=== PATIENT | female | born 1975 | race Two or more races ===

== ENCOUNTER 2024-07-18 09:45 | Outpatient (AMB) | payer MEDICAID, SELFPAY ==
--- NOTE | 2024-07-18 09:47 | MHC.OFFVIS ---
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 The patient reports that a year ago she had surgery at [facility] for her sciatica. After that surgery she says her pain is still severe. She reports it is worse on the left side than the right. Her neck, shoulder and arms have a lot of pain as well. It is distrupting her sleep. She denies any injury. Meloxicam and tramadol is her pain regimen. Allergies No Known Allergies Allergy (Verified 07/18/24 09:51) Medication List - Last Reconciled 07/18/24 by Magalie Yousif RN hydrochlorothiazide 50 mg PO DAILY losartan 100 mg PO DAILY meloxicam 15 mg PO BID tramadol 50 mg PO Q8H PRN HPI Comments Details: Neck pain, chronic, years. Goes to [facility] for back pain. Has not had any intervention for neck pain. No MRI. No PT yet. Posterior neck going to both shoulder and hands. She complains of clicking on right thumb. Can't sleep at night to find comfortable position. Describes it as tight. Numbness on both hands, right worse than left. No hand or cervical spinal xray. Was told in past to have CTS year sago. Had injection on right wrist in the past, more than 8 years. [facility] Medical History Sciatica Social History (Updated 07/18/24 @ 09:55 by Magalie Yousif RN) Current occupational status: unemployed Current occupation: Right handed Review of Systems Const All systems reviewed & are unremarkable except as noted in HPI and below Physical Exam Vital Signs: BMI result Body Mass Index 30.0 Constitutional: Patient appears to be in no acute distress, well nourished and well developed. Patient was appropriately conversant and oriented. Good historian. MSK: Inspection reveals appropriate head and neck positioning. Diffusely tender cervical paraspinals, trapezius. Cervical ROM was full. Spurling's sign negative. Bilateral shoulder, elbow and wrist ROM WNL. No ligamentous laxity or crepitance. No increased effusion. Strength is 5/5 in all muscle groups tested. No increased tone noted. Neurological: Neurologic examination of the upper and lower extremities was nonfocal with intact sensation, muscle stretch reflexes and without focal motor deficits . Peoples?s negative bilaterally. Babinski was down going bilaterally. Clonus was negative. Gait is non-antalgic without loss of balance. Results Reviewed Results Reviewed: I reviewed records from the following: [facility] Assessment & Plan Assessment & Plan (1) Myofascial pain: Code(s): M79.18 - Myalgia, other site Category: Medical (2) Cervical radiculitis: Code(s): M54.12 - Radiculopathy, cervical region Category: Medical (3) Carpal tunnel syndrome on both sides: Code(s): G56.03 - Carpal tunnel syndrome, bilateral upper limbs Category: Medical (4) Right hand pain: Code(s): M79.641 - Pain in right hand Category: Medical Plan Chronic upper back and neck pain. Suspect myofascial. However Spurling sign is positive, question cervical radiculitis. Other symptoms of hand numbness and clicking on right thumb. Cervical spine x-ray today. Right hand x-ray today. We will schedule for EMG to rule out Carpal Tunnel Syndrome. Referring to PT for upper back/neck pain, myofascial pain. Assessment and plan discussed with patient, and patient was agreeable. All questions were answered thoroughly. Follow up after 1 month. Francisca Esparza MD, HEENA Board Certified, [place] [employer] and [employer] (ABPMR) Board Certified, [place] [employer] Electro[employer] (ABEM) Orders: Orders PT Evaluation and Treatment Today G56.03 - Carpal tunnel syndrome, bilateral upper limbs, M54.12 - Radiculopathy, cervical region, M79.18 - Myalgia, other site, M79.641 - Pain in right hand NE electromyogram (EMG) Today G56.03 - Carpal tunnel syndrome, bilateral upper limbs, M79.641 - Pain in right hand NE nerve conduction velocity Today G56.03 - Carpal tunnel syndrome, bilateral upper limbs, M79.641 - Pain in right hand XR cervical spine 3V Today M54.12 - Radiculopathy, cervical region, M54.2 - Cervicalgia XR hand wrist RT Today G56.03 - Carpal tunnel syndrome, bilateral upper limbs, M79.641 - Pain in right hand Coding Level of Care Code New Pt Level 4 (64381) Diagnoses Myofascial pain M79.18 Cervical radiculitis M54.12 Carpal tunnel syndrome on both sides G56.03 Right hand pain M79.641
== END 2024-07-18 12:21 | disposition home or self-care (01) ==
LOC: HO.HOS 09:46
PROVIDERS: PCP Physician Assistant; Visit Provider Physical Medicine & Rehabilitation
DX: M79.18 Myalgia, other site (principal); G56.03 Carpal tunnel syndrome, bilateral upper limbs; M79.641 Pain in right hand; M54.2 Cervicalgia
CPT/HCPCS: 99203

== ENCOUNTER 2024-07-18 09:45 | Outpatient (REF) | payer MEDICAID, SELFPAY | END 2024-07-18 09:46 | disposition home or self-care (01) | LOC: HO.HOSX 09:45 | PROVIDERS: PCP Physician Assistant; Visit Provider Physical Medicine & Rehabilitation | DX: M54.2 Cervicalgia (principal); M54.12 Radiculopathy, cervical region; G56.03 Carpal tunnel syndrome, bilateral upper limbs; M79.641 Pain in right hand; M79.18 Myalgia, other site | CPT/HCPCS: 72040; 73110; 73130; 99202 ==

== ENCOUNTER 2024-07-30 08:41 | Outpatient (REF) | payer MEDICAID, SELFPAY ==
--- NOTE | 2024-07-30 08:45 | EMG_ITS ---
Chief complaint: Right thumb pain, triggering, right hand numbness Reason for referral: Evaluate for Carpal Tunnel Syndrome Procedure done: Right upper extremity NCS/EMG Precautions and/or limitations: None The limb temperature was monitored continuously and remained between 32-36 degrees C during the performance of the NCS. Nerve Conduction Studies Anti Sensory Summary Table ?Stim Site NR Onset (ms) Norm Onset (ms) Peak (ms) Norm Peak (ms) O-P Amp (?V) Norm O-P Amp Site1 Site2 Delta-0 (ms) Dist (cm) Fly (m/s) Norm Fly (m/s) Right Median Anti Sensory (2nd Digit) Wrist ? 2.9 3.9 <3.6 21.1 >10 Wrist 2nd Digit 2.9 14.0 48 Right Radial Anti Sensory (Thumb) Forearm ? 1.6 2.0 <3.1 28.0 Forearm Thumb 1.6 0.0 Right Ulnar Anti Sensory (5th Digit) Wrist ? 2.2 2.7 <3.7 28.5 >15.0 Wrist 5th Digit 2.2 14.0 64 Motor Summary Table ?Stim Site NR Onset (ms) Norm Onset (ms) O-P Amp (mV) Norm O-P Amp iAmp (mV) Amp (1st) (%) Site1 Site2 Delta-0 (ms) Dist (cm) Fly (m/s) Norm Fly (m/s) Right Median Motor (Abd Poll Brev) Wrist ? 4.5 <3.9 8.7 >4.5 10.2 100.0 Elbow Wrist 3.5 18.0 51 >45 Elbow ? 8.0 8.7 10.3 100.0 Right Ulnar Motor (Abd Dig Minimi) Wrist ? 2.7 <3.0 7.1 >5 7.9 100.0 B Elbow Wrist 2.8 17.5 63 >45 B Elbow ? 5.5 7.0 7.9 98.6 A Elbow B Elbow 1.4 10.0 71 >45 A Elbow ? 6.9 7.1 8.1 100.0 EMG ?Side Muscle Nerve Root Ins Act Fibs Psw Amp Dur Poly Recrt Int Pat Comment Right 1stDorInt Ulnar C8-T1 Nml Nml Nml Nml Nml 0 Nml Complete Right FlexCarRad Median C6-7 Nml Nml Nml Nml Nml 0 Nml Complete Right Biceps Musculocut C5-6 Nml Nml Nml Nml Nml 0 Nml Complete Right Triceps Radial C6-7-8 Nml Nml Nml Nml Nml 0 Nml Complete Right Deltoid Axillary C5-6 Nml Nml Nml Nml Nml 0 Nml Complete FINDINGS: Right median motor nerve showed prolonged distal latency, normal amplitude and normal conduction velocity. Right median sensory nerve showed prolonged peak latency. All other nerves tested were within normal. Concentric needle EMG was performed in selected muscles of the right upper extremity. Study did not reveal signs of electric abnormalities as shown in the table above. IMPRESSION: 1. This is an abnormal study. 2. There is electrodiagnostic evidence for right moderate-severe median neuropathy at the wrist, consistent with carpal tunnel syndrome. 3. There is no electrodiagnostic evidence for ulnar neuropathy, brachial plexopathy, or cervical radiculopathy. Clinical comment: Referring to Dr. Milian, hand surgery, for surgical options. To start PT for upper back/arm pain. Thank you for your kind referral. Francisca Esparza MD, HEENA Board Certified, [place] Board [employer] and Rehabilitation (ABPMR) Board Certified, [place] Board [employer] Electrodiagnostic Medicine (ABEM) C[facility]IN [id number] [facility]
== END 2024-07-30 08:42 | disposition home or self-care (01) ==
LOC: HO.NEURO 08:41
PROVIDERS: Visit Provider Physical Medicine & Rehabilitation
DX: M79.641 Pain in right hand (principal); G56.03 Carpal tunnel syndrome, bilateral upper limbs
CPT/HCPCS: 95886; 95909

== ENCOUNTER → 2024-07-30 08:45 | Outpatient (BNV) | payer MEDICAID, SELFPAY | PROVIDERS: Visit Provider Physical Medicine & Rehabilitation | DX: G56.01 Carpal tunnel syndrome, right upper limb (principal) | CPT/HCPCS: 95886; 95909 ==

== ENCOUNTER 2024-08-20 10:17 | Outpatient (AMB) | payer MEDICAID, SELFPAY ==
--- NOTE | 2024-08-20 10:20 | A.OFFVIS_ITS ---
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 EMG done on 07/30/24. 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 The patient states that her numbness is constant, daily, and worse at night. The patient also reports that she feels her hand is getting ?center?. Of note, the patient does also report locking and catching of the right thumb, and some pain over the A1 shiva of this finger. No other acute complaints or concerns at this time. [facility] Medical History Sciatica Social History Current occupational status: unemployed Current occupation: Right handed Review of Systems Const All systems reviewed & are unremarkable except as noted in HPI and below Physical Exam Extrem Other: Neuro: Decreased sensation in the median nerve distribution of the right hand. Normal sensation to all other digits in the right hand today. Normal sensation in the tips of all digits of the left hand today. There is evidence of thenar wasting No intrinsic wasting Weakened APB muscle firing and good finger cross. Vascular: Capillary refill brisk. ROM: Patient can make a fist and extend all their digits. Patient does have visible and palpable locking and catching of the right thumb Skin: No lacerations or abrasions noted. General: No ecchymosis. No erythema or evidence of infection. Results Reviewed Results Reviewed: IMPRESSION: 1. This is an abnormal study. 2. There is electrodiagnostic evidence for right moderate-severe median neuropathy at the wrist, consistent with carpal tunnel syndrome. 3. There is no electrodiagnostic evidence for ulnar neuropathy, brachial plexopathy, or cervical radiculopathy. Clinical comment: Referring to Dr. Milian, hand surgery, for surgical options. To start PT for upper back/arm pain. Thank you for your kind referral. Francisca Esparza MD, HEENA Assessment & Plan Assessment & Plan (1) Carpal tunnel syndrome of right wrist: Code(s): G56.01 - Carpal tunnel syndrome, right upper limb Category: Medical (2) Right hand pain: Code(s): M79.641 - Pain in right hand Category: Medical (3) Trigger thumb, right thumb: Code(s): M65.311 - Trigger thumb, right thumb Category: Medical Plan 1. Carpal tunnel syndrome, right 2. Trigger thumb, right I educated the patient about the condition. I discussed both operative and nonoperative treatment options. The patient would like to proceed with surgery. The risks and benefits of operative treatment were discussed with the patient and the patient wishes to proceed with surgery. These risks include, but are not limited to, risk of damage to blood vessels, nerves, tendons, infection, recurrence, incomplete relief of preoperative symptoms, persistent pain, possible need for further surgery, and the risks associated with regional blocks and/or anesthesia. Plan is to take the patient to the operating room at some point in the next few weeks for the following procedures: 1. Carpal tunnel release, right, under local anesthesia 2. Trigger thumb release, right, under local anesthesia All of the preoperative paperwork including the consent was discussed today. All of the patient's questions were answered in the clinic today. The patient understands that they will be in contact with our assistant professor surgical technology to discuss scheduling their procedure. Patient denies diabetes, blood thinners, asthma, heart issues, lung issues, kidney issues, or current smoking. Orders: Orders OT Evaluation and Treatment Today G56.01 - Carpal tunnel syndrome, right upper limb, M79.641 - Pain in right hand Coding Level of Care Code New Pt Level 4 (57285) Diagnoses Carpal tunnel syndrome of right wrist G56.01 Right hand pain M79.641 Trigger thumb, right thumb M65.311
--- OUTSIDE RECORDS SUMMARY | 2024-08-26 17:38 | XMS_ITS | Continuity of Care Document ---
Author Organization [facility] Address [address] [place] [address] Phone Care Team Providers Care Bindery Chief Name Role Phone Juan M MCCARTHY, RVT, RPPACO, Santos Unavailable U navailable Procedures Procedure Date Office/Outpt E&M Established 15 Mins- CT & [place] Duplex Scan-extrem Veins; Comp- CT & [place] Duplex Scan-extrem Veins; Uni/ CT & [place] O Endovenous Laser, 1st Vein- CT & [place] Endovenous laser vein addon- CT & [place] Jun Offic/outpt E&m Estab 5 Min Trial- Telem edicine CT & [place] Office/Oupt E&M New Pt 30 Mins- CT & [place] Duplex Scan-extrem Veins; Comp- CT & [place] Advance Directives Directive Yes / No Effective Date File Name No Information Encounters Encounter Description Practice Location Reason(s) For Visit Diagnoses Date Provider Providers Copied on Encounter Office/Outpt E&M Established 15 Mins- [place] & [place] [facility], [address] [place] [address] [address], [id number], [place] tel:[phone] [facility] Essential (primary) hypertensionPr uritus, unspecifiedVar icose veins of bilateral lower extremities with other complicationsL ocalized edemaCramp and spasmRestless legs syndrome Jul- 4 Juan M MCCARTHY RVT, RPVI Robert. [address] [place] [address], [facility], [place], [id number] , [place]. tel:[phone] Referring Provider: Barry Samson, [address] [place] [address], [place], [address]. tel:[phone] [facility], [address] [place] [address] [address] [place], [id number], [place] tel:[phone] CV[facility] - [facility] Chronic venous hypertension (idiopathic) with other complications of bilateral lower extremity Jul- 4 Juan M MCCARTHY RVT, RPVI Robert. [address] [place] [address], [facility] [place] [id number] , [place]. tel:[phone] Referring Provider: Barry Samson, [address] [place] [address], [place], [address]. tel:[phone] [facility], [address] [place] [address] [address] [address], [id number], [place] tel:[phone] [facility] - [facility] Encounter for follow-up examination after completed treatment for conditions other than malignant neChronic venous hypertension (idiopathic) with other complications of right lower extremity Jun- 4 Juan M MCCARTHY RVT, RPVI Robert. [address] [place] [address], [facility] [place], [id number] , [place]. tel:[phone] Referring Provider: Barry Samson, [address] [place] [address], [place], [address]. tel:[phone] [facility], [address] [place] [address] [address] [place], [id number], [place] tel:[phone] [facility] - [facility] Chronic venous hypertension (idiopathic) with inflammation of right lower extremity Oct- 4 Juan M MCCARTHY RVT, RPVI Robert. [address] [place] [address], [facility] [place] [id number] , [place]. tel:[phone] Referring Provider: Barry Samson, [address] [place] [address], [place], [address]. tel:[phone] Offic/outpt E&m Estab 5 Min Trial- Telemedicine CT & [place] [facility], [address] [place] [address] [address] [address], [id number], [place] tel:[phone] [facility] [place] [facility] Chronic venous hypertension (idiopathic) with other complications of bilateral lower extremityCramp and spasmRestless legs syndromeEssent ial (primary) hypertensionPr uritus, unspecified Sep-2 4 Juan M MCCARTHY, HARLAN, CONCHA Graham. [address] [place] [address], [place], [place], [id number] , [place]. tel:[phone] Referring Provider: Barry Samson, [address] [place] [address], [facility] [place], [address]. tel:[phone] Office/Oupt E&M New Pt 30 Mins- CT & [place] [facility], [address] [place] [address] [address], [place], [id number], [place] tel:[phone] [facility] [place] [facility] Varicose veins of right lower extremity with other complicationsP ain in right lower legPain in left lower legPain in right legRestless legs syndromeEssent ial (primary) hypertensionPr uritus, unspecifiedPai n in left legCramp and spasmLocalized edema Ulises- 4 Juan M MCCARTHY RVT, CONCHA Graham. [address] [place] [address], [place], [place], [id number] , [place]. tel:[phone] Referring Provider: Barry Samson, [address] [place] [address], [place], [address]. tel:[phone] [facility], [address] [place] [address] [address], [id number], [place] tel:[phone] [facility] - [facility] Chronic venous hypertension (idiopathic) with other complications of bilateral lower extremity Juan M MCCARTHY, HARLAN, CONCHA Graham. [address], [address], [place], [id number] , . tel:[phone] Referring Provider: Santos Mcgowan MD, HARLAN, CONCHA, [address], [place], [address] . tel:[phone] Family History Family Member Type Diagnosis Age At Onset No Information Payers Payer name Insurance type Covered green party ID Authorian bhardwaj(s) Medical Assistance [facility] [id number] Social History Type Description Quantity Date Captured Comments Alcohol Use Details Unknown Caffeine Use Details Unknown Tobacco Use Status Current non-smoker Smoking Status Never Smoker Non-Smoking Tobacco Use Details : No Details Available : No Details Available Sex Female Vital Signs Date / Time: Height Weight BMI Pulse Rate Blood Pressure Temperature Respiratory Rate Body Surface Area Head Circumference Head Circ. Percentile Wt./Raymond. Percentile BMI percentile Pulse Ox Inhaled Ox 80.290 kg (177.00 lbs) 30.4 4 kg/m eter (2) 120/80 mm[Hg] Chief Complaint And Reason For Visit No Information Reason For Referral Reason For Referral No Information Plan Of Treatment Date Type Action Status Goal Diet education completed Goal Diet education completed Referral Ordered: Weight management: Referral to physician timeframe: 3 Months (related to Body mass index (BMI) 30.0-30.9, adult) ordered Referral Ordered: Weight management: Referral to physician timeframe: 3 Months (related to Body mass index (BMI) 30.0-30.9, adult) ordered Appointment Stephanie Nielsen (Auth Pending ) Have Pt Sign Consent BOOKED Appointment Stephanie Nielsen BOOKED Appointment Stephanie Nielsen BOOKED Appointment Stephanie Nielsen BOOKED Appointment Stephanie Nielsen BOOKED Appointment Stephanie Nielsen BOOKED History Of Present Illness Encounter Date Complaint History Of Prese nt Illness No Information Functional Status Date Functional Assessmen t No Information Instructions Date Instruction Additional Infor mation Pre and post instruc tions reviewed and provided Related to Varicose veins of bilateral lower extremities with other complications Compression stocking usage as conservative measure Related to Varicose veins of bilateral lower extremities with other complications Diet education Related to Body mass index (BMI) 30.0-30.9, adult Giving Encouragement to exercise Related to Body mass index (BMI) 30.0-30.9, adult Lifestyle education Related to B renaldo mass index (BMI) 30.0-30.9, adult Patient education booklet given Related to Chronic venous hypertension (idiopathic) with other complications of bilateral lower extremity Pre and post instruc tions reviewed and provided Related to Chronic venous hypertension (idiopathic) with other complications of bilateral lower extremity Diet education Related to Body mass index (BMI) 30.0-30.9, adult Giving Encouragement to exercise Related to Body mass index (BMI) 30.0-30.9, adult Lifestyle education Related to B renaldo mass index (BMI) 30.0-30.9, adult Patient education booklet given Related to Varicose veins of right lower extremity with other complications Pre and post instruc tions reviewed and provided Related to Varicose veins of right lower extremity with other complications Assessments Type Assessment Date No Information Patient Care Teams Name Effective Dates (start - stop) Status Members No Information
== END 2024-08-20 11:10 | disposition home or self-care (01) ==
DX: G56.01 Carpal tunnel syndrome, right upper limb (principal); M79.641 Pain in right hand; M65.311 Trigger thumb, right thumb
CPT/HCPCS: 99204

== ENCOUNTER → 2024-08-20 10:17 | Outpatient (BNVA) | payer MEDICAID, SELFPAY | DX: G56.01 Carpal tunnel syndrome, right upper limb (principal); M79.641 Pain in right hand; M65.311 Trigger thumb, right thumb | CPT/HCPCS: 99212 ==

== ENCOUNTER 2024-09-18 12:43 | Outpatient (RCR) | payer MEDICAID, SELFPAY ==
--- NOTE | 2024-09-18 13:58 | MHC.OT.EP ---
[address] [phone] Occupational Therapy Plan of Care Patient Name: Stephanie Nielsen Date of Evaluation: 09/18/24 Diagnosis: R CTS Pain Location: 8/10 constant pain, thumb, neck and shoulder Tenderness in base of thumb (CMC OA likely) Tenderness over A1 pully in thumb Pain Score: 8 Pain Scale Used: Numeric (0 - 10) Aggravating Factors: Gripping, twisting, forceful use Alleviating Factors: Wear thumb spica orthosis at nighttime or when she feels the pain, Ibuprophen, Meloxicam, Prednisone (now tapering) Assessment: 49 yo female w/ hx of right hand numbness and tingling with pain radiates up arm and into neck. EMG shows mod-severe CTS and she is scheduled for CTR and trigger thumb release 10/23/24 w/ Dr Milian. She is also attending physical therapy for the past month for neck and shoulder pain. On assessment today, she reports 8/10 from hand into shoulder and neck. Sensation intact w/ 2.83 [place] Geraldo and (-) Phalen's, but able (+) Tinel's over right carpal tunnel and tenderness to palpate thumb at A1 shiva. She is also noted to have laxity in both thumbs and some pain in right CMC. We will continue conservative hand therapy prior to scheduled surgery with goal of reducing pain, triggering and sensory changes through right hand. Frequency and Duration: The patient will be seen 2x/wk for 3 weeks Short Term Goals: Ind w/ HEP Ind w/ use of nighttime CTS orthosis and oval 8 to thumb Ind w/ self STM Good follow through w/ joint protection techniques Senior Living Goals: Pt to report trigger free use of right thumb w/ daily activities Ind w/ general UE strengthening program Treatment Plan: Therapeutic Exercise Therapeutic Activity Home Exercise Program Splinting Patient Education Edema Control ADL Training Ultrasound Paraffin Fluidotherapy MHP Cold Packs Joint Mobilization Soft Tissue Mobilization Kinesiotaping Electronically Signed By: Rere Velez OTR/L Please Sign and return to therapist. Thank you once again for your referral.
--- NOTE | 2024-09-25 15:26 | MHC.OT.DC ---
[address] [phone] F: [phone] Occupational Therapy Discharge Note Patient Name: Stephanie Nielsen Provider: Chin Chow PA-C Diagnosis: R CTS Date of Evaluation: 09/18/24 Date of Discharge: 09/25/24 Treatments to Date: 1 Cancellations to Date: No Shows to Date: 3 Discharge Status: Patient Elected to Stop Visit Non-compliance Discharge Summary: Stephanie was referred to OT w/ right hand numbness and pain. She was seen for initial OT assessment and plan was to trial conservative therapy prior to CTR, however she has no-showed all follow up visits since then. We will be discharging due to visit non-compliance policy. Initial OT eval: 49 yo female w/ hx of right hand numbness and tingling with pain radiates up arm and into neck. EMG shows mod-severe CTS and she is scheduled for CTR and trigger thumb release 10/23/24 w/ Dr Milian. She is also attending physical therapy for the past month for neck and shoulder pain. On assessment today, she reports 8/10 from hand into shoulder and neck. Sensation intact w/ 2.83 [place] Geraldo and (-) Phalen's, but able (+) Tinel's over right carpal tunnel and tenderness to palpate thumb at A1 shiva. She is also noted to have laxity in both thumbs and some pain in right CMC. We will continue conservative hand therapy prior to scheduled surgery with goal of reducing pain, triggering and sensory changes through right hand. Electronically Signed By: Rere Velez, OTR/L Please Sign and return to therapist, thank you for your referral.
== END 2024-09-25 15:27 | disposition home or self-care (01) ==
LOC: HO.OT 12:43
PROVIDERS: PCP Physician Assistant
DX: G56.01 Carpal tunnel syndrome, right upper limb (principal)
CPT/HCPCS: 97110; 97140; 97165

== ENCOUNTER 2024-09-23 09:58 | Outpatient (RCR) | payer MEDICAID, SELFPAY | END 2024-11-21 09:03 | disposition home or self-care (01) | LOC: HO.PT 09:58 | PROVIDERS: PCP Physician Assistant; Visit Provider Physical Medicine & Rehabilitation | DX: M75.101 Unspecified rotator cuff tear or rupture of right shoulder, not specified as traumatic (principal); Z98.890 Other specified postprocedural states | CPT/HCPCS: 97110; 97140; 97162; 97535 ==

== ENCOUNTER 2024-11-27 09:51 | Outpatient (AMB) | payer MEDICAID, SELFPAY ==
--- NOTE | 2024-11-27 10:20 | MHC.OFFVIS ---
Vital Signs 11/27/24 10:20 Height 5 ft 4 in Weight 175 lb BMI 30.0 Intake Visit Reasons: OV Cervical radiculopathy to lower back Intake Note: Stephanie 49 yr old female presents today for her follow up visit s/p P.T for her lower back pain. Last visit she was scheduled to have her EMG study. She was positive for CTS and is scheduled to have right CTR surgery on 01/19/[address] Milian. States her neck pain has not improved and she has not started P.T. States she came to a P.T appt but was told was D/C. States she is confuse about P.T. Allergies No Known Allergies Allergy (Verified 11/27/24 10:26) Medication List - Last Reconciled 11/27/24 by Francisca Esparza MD hydrochlorothiazide 50 mg PO DAILY losartan 100 mg PO DAILY meloxicam 15 mg PO BID tramadol 50 mg PO Q8H PRN HPI Comments Details: Neck pain, chronic, years. Used to go to [facility] for back pain (2022). Has not had any intervention for neck pain. No MRI. No PT yet. Posterior neck going to both shoulder and hands. She complains of clicking on right thumb. Can't sleep at night to find comfortable position. Describes it as tight. Numbness on both hands, right worse than left. Was told in past to have CTS year sago. Had injection on right wrist in the past, more than 8 years. Neck pain is the same. PT discharged her due to poor compliance/no shows. But patient says she was going to OT for hand/CTS. And that she has 2 names under EMR. She tells me that she had gone to [facility] and had an MRI cspine. She was also sent for MRI lumbar. Will continue to follow with [facility] now. She was also seen by hand surgery and scheduled for surgery 01/19/2025 for Carpal Tunnel Syndrome. [facility] Medical History (Updated 08/27/24 @ 12:23 by Candice Hutson) Sciatica Social History Current occupational status: unemployed Current occupation: Right handed Physical Exam Vital Signs: BMI result Body Mass Index 30.0 Constitutional: Patient appears to be in no acute distress, well nourished and well developed. Patient was appropriately conversant and oriented. Good historian. Neurological: Nonfocal. Gait is non-antalgic without loss of balance. Results Reviewed Results Reviewed: EMG 07/18/2024 IMPRESSION: 1. This is an abnormal study. 2. There is electrodiagnostic evidence for right moderate-severe median neuropathy at the wrist, consistent with carpal tunnel syndrome. 3. There is no electrodiagnostic evidence for ulnar neuropathy, brachial plexopathy, or cervical radiculopathy. Ordering Physician: Francisca Lindo Date of Service: 07/18/24 Procedure(s): XR hand wrist RT Accession Number(s): [id number] cc: RAJAN PARTIDA; Francisca Lindo~ EXAMINATION: XR HAND/WRIST, RIGHT CLINICAL INFORMATION: G56.03 - Carpal tunnel syndrome, bilateral upper limbs COMPARISON: None available. TECHNIQUE: PA, lateral, and oblique views of the right hand and wrist. FINDINGS: No fracture or malalignment. 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 No periarticular osteopenia, erosions, or suspicious soft tissue calcifications. 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 Electronically signed by: Kristian Monroe MD 10/17/2024 08:28 AM [facility] Ordering Physician: Francisca Lindo Date of Service: 07/18/24 Procedure(s): XR cervical spine 3V Accession Number(s): [id number] cc: RAJAN PARTIDA; Francisca Lindo~ EXAMINATION: XR CERVICAL SPINE CLINICAL INFORMATION: M54.2 - Cervicalgia COMPARISON: None available. TECHNIQUE: 3 views of the cervical spine were obtained. FINDINGS: Moderate-severe degenerative disc disease at C4-C5, C5-C6, and C6-C7. There is a mild focal kyphosis and minimal anterolisthesis at C3-C4 or. No fracture or prevertebral soft tissue swelling. Degenerative changes are present at the anterior atlantoaxial junction. XR/XR cervical spine 3V IMPRESSION: Moderate-severe degenerative disc disease at C4-C5, C5-C6, and C6-C7. Mild focal kyphosis and minimal anterolisthesis at C3-C4. Electronically signed by: Kristian Monroe MD 10/17/2024 08:27 AM EST RP Assessment & Plan Assessment & Plan (1) Cervical radiculitis: Code(s): M54.12 - Radiculopathy, cervical region Category: Medical (2) Myofascial pain: Code(s): M79.18 - Myalgia, other site Category: Medical Plan As she is already being followed at [facility] and MRIs were ordered by them, advised to stay with them. No further follow up with me. She does have surgery scheduled with our hand surgeon Dr. Milian 01/19/2025. Assessment and plan discussed with patient, and patient was agreeable. All questions were answered thoroughly. Francisca Esparza MD, HEENA Board Certified, [place] [employer] (ABPMR) Board Certified, [place] [employer] (ABEM) Coding Level of Care Code Est Pt Level 3 (09111) Diagnoses Cervical radiculitis M54.12 Myofascial pain M79.18
--- OUTSIDE RECORDS SUMMARY | 2024-11-27 12:03 | XMS_ITS | Clinical Summary ---
Author Organization [facility] Address [address] [place] [address] Care Team Providers Care City Dispatcher Name Role Phone Barry Mota Primary Care Provider [phone] Source Comments PLEASE NOTE, if this patient is a minor, it may be UNLAWFUL to discuss sensitive information that is contained in these records (such as FAMILY PLANNING, MENTAL HEALTH or SUBSTANCE ABUSE) with the minor patient's parent or other person without the patient's specific authorization.[facility] Allergies Active Allergy Reactions Criticality Noted Date Comments Amlodipine 09/24/2019 When dose was increased to 10 mg, reported blurred vision, and weird sensation in entire body. (phone message 07-24-17) When dose was increased to 10 mg, reported blurred vision, and weird sensation in entire body. (phone message 07-24-17) Lisinopril Cough 09/24/2019 Other reaction(s): cough Nitrofurantoin Monohyd/M-Cryst Rash 09/24/2019 Medications venlafaxine (EFFEXOR-XR) 150 mg 24 hr capsule TK ONE C PO ONCE D IN THE MORNING. AFTER 2 WEEKS DECREASE TO 75MG C 0 04/11/20 19 Active miscellaneous medical supply miscIndications: Fibromyalgia,Perfecto ymyalgia arteritica (HCC-CMS) by miscellaneous route once daily Dispense 1 shower chair with back. Lifetime use: Dx: Fibromyalgia, Polymyalgia arteritica (HCC-CMS) 1 Each 1 07/26/20 21 Active caneIndications: Polymyalgia arteritica (HCC-CMS),Fibrom yalgia,Lumbar herniated disc,Acute low back pain with bilateral sciatica, unspecified back pain laterality,Acute right ankle pain,Acute bilateral low back pain without sciatica,Sciatic a of right side,At high risk for falls CANE 1 Each 10/13/19 22 Active naloxone (NARCAN) 4 mg/actuation nasal sprayIndications :Lumbar herniated disc,Sciatica associated with disorder of lumbar spine,Acute low back pain with bilateral sciatica, unspecified back pain laterality,Acute bilateral low back pain without sciatica Place 1 Esparto into the nostril(s) as needed for opioid reversal (Overdose) 1 Each 12/02/19 22 Active prazosin (MINIPRESS) 2 mg capsule Take 2 mg by mouth once daily 01/31/20 22 Active raNITIdine HCL (ZANTAC) 150 mg tablet Take 150 mg by mouth 2 (two) times daily 11/07/19 20 Active blood pressure test kit-mediumIndica tions:Primary hypertension Use for blood pressure checks twice daily. 1 Kit 2 04/17/20 22 Active back braceIndications :Lumbar pain,Sciatica of right side Dispense one back brace for patient with low back pain with sciatica. 1 Each 08/07/20 22 Active leg braceIndications :Sprain of right ankle, unspecified ligament, sequela,Right ankle instability Disp 1 ankle brace x 99 years for instability of the right ankle 1 Each 12/21/19 23 Active condoms - femaleIndication s:STD exposure Please dispense female condoms for PRN use for patient. 12 Each 3 02/21/20 23 Active penicillin V potassium (VEETID) 500 mg tabletIndication s:Sore throat Take 1 Tablet by mouth 3 (three) times daily 30 Tablet 02/28/20 23 Active mometasone (NASONEX) 50 mcg/actuation nasal sprayIndications :Sore throat Place 2 Sprays in both nostrils once daily 17 g 2 06/11/20 23 Active acetic acid (VOSOL) 2 % otic solutionIndicati ons:Hyperopia of both eyes Place 4 Drops into both ears 3 (three) times daily 15 mL 2 09/06/20 23 Active benzonatate (TESSALON) 100 mg capsuleIndicatio ns:Acute cough Take 1 Capsule by mouth 3 (three) times daily as needed for cough 30 Capsule 12/30/19 24 Active famotidine (PEPCID) 20 mg tabletIndication s:Gastroesophage al reflux disease without esophagitis Take 1 Tablet by mouth 2 (two) times daily 180 Tablet 1 01/14/20 24 Active gabapentin (NEURONTIN) 400 mg capsuleIndicatio ns:Sciatica associated with disorder of lumbar spine Take 1 Capsule by mouth 3 (three) times daily 180 Capsule 2 03/05/20 24 Active rOPINIRole (REQUIP) 1 mg tablet Take 1 Tablet by mouth every evening 30 Tablet 2 04/29/20 24 Active acetic acid (VOSOL) 2 % otic solutionIndicati ons:Dry both ear canals Place 4 Drops into both ears 3 (three) times daily 15 mL 2 05/08/20 24 Active arm braceIndications :Bilateral carpal tunnel syndrome Right and Left (bilateral) supportive wrist brace - carpal tunnel support. 2 Each 05/20/20 24 Active erythromycin (ROMYCIN) 5 mg/gram (0.5 %) ophthalmic ointment Apply 0.5 Inches to eye nightly at bedtime 3.5 g 05/26/20 24 Active fluocinonide (LIDEX) 0.05 % external solutionIndicati ons:Eczema, unspecified type Apply topically once daily 60 mL 1 05/28/20 24 Active calcipotriene-be tamethasone (TACLONEX) 0.005-0.064 % ointmentIndicati ons:Plaque psoriasis Apply topically once daily For up to 10 days per outbreak of psoriatic eczema 60 g 06/09/20 24 Active clonazePAM (KLONOPIN) 0.5 mg tablet Take 1 Tablet by mouth 2 (two) times daily 30 Tablet 06/23/20 24 Active hydroCHLOROthiaz juanjo (HYDRODIURIL) 25 mg tabletIndication s:Essential hypertension Take 2 Tablets by mouth once daily NEEDED FOR HIGH BLOOD PRESSURE!! 180 Tablet 1 08/04/20 24 Active losartan (COZAAR) 100 mg tabletIndication s:Essential hypertension Take 1 Tablet by mouth once daily 60 Tablet 2 08/04/20 24 Active cloNIDine (CATAPRES) 0.1 mg tabletIndication s:Encounter for follow-up for hypertension TAKE 1 TABLET BY MOUTH TWICE DAILY NEEDED FOR HYPERTENSION 180 Tablet 2 08/04/20 24 Active valACYclovir (VALTREX) 500 mg tablet Take 1 Tablet by mouth once daily TK 1 T PO D -SUPPRESSION 30 Tablet 2 09/23/19 25 Active benzonatate (TESSALON) 200 mg capsuleIndicatio ns:Chronic cough Take 1 Capsule by mouth 3 (three) times daily as needed for cough 30 Capsule 1 09/24/19 25 Active traMADoL (ULTRAM) 50 mg tabletIndication s:Sciatica associated with disorder of lumbar spine,Lumbar disc herniation,Lumba r herniated disc,Chronic left-sided low back pain without sciatica,Acute bilateral low back pain without sciatica,Acute low back pain with bilateral sciatica, unspecified back pain laterality,Polym yalgia arteritica (HCC-CMS) Take 1 Tablet by mouth 4 (four) times daily as needed for pain 40 Tablet 1 11/28/19 25 Active meloxicam (MOBIC) 15 mg tabletIndication s:Sciatica associated with disorder of lumbar spine,Lumbar disc herniation,Lumba r herniated disc,Chronic left-sided low back pain without sciatica,Acute bilateral low back pain without sciatica,Acute low back pain with bilateral sciatica, unspecified back pain laterality Take 1 Tablet by mouth once daily as needed for pain or other reason (Pain) for pain 90 Tablet 1 11/28/19 25 Active ibuprofen 800 mg tabletIndication s:Sore throat Take 1 Tablet by mouth 3 (three) times daily as needed for headaches 90 Tablet 1 11/28/19 25 Active zolpidem (AMBIEN) 10 mg tablet Take 1 Tablet by mouth nightly at bedtime as needed for sleep for insomnia 20 Tablet 1 11/28/19 25 Active traMADoL (ULTRAM) 50 mg tabletIndication s:Sciatica associated with disorder of lumbar spine,Lumbar disc herniation,Lumba r herniated disc,Chronic left-sided low back pain without sciatica,Acute bilateral low back pain without sciatica,Acute low back pain with bilateral sciatica, unspecified back pain laterality,Polym yalgia arteritica (HCC-CMS) Take 1 Tablet by mouth 4 (four) times daily as needed for pain 40 Tablet 1 06/09/20 24 025 Discontin ued(Reord er (E-Cancel Not Sent)) meloxicam (MOBIC) 15 mg tabletIndication s:Sciatica associated with disorder of lumbar spine,Lumbar disc herniation,Lumba r herniated disc,Chronic left-sided low back pain without sciatica,Acute bilateral low back pain without sciatica,Acute low back pain with bilateral sciatica, unspecified back pain laterality Take 1 Tablet by mouth once daily as needed for pain or other reason (Pain) for pain 90 Tablet 1 06/23/20 24 025 Discontin ued(Reord er (E-Cancel Not Sent)) ibuprofen 800 mg tabletIndication s:Sore throat Take 1 Tablet by mouth 3 (three) times daily as needed for headaches 90 Tablet 1 09/23/19 25 025 Discontin ued(Reord er (E-Cancel Not Sent)) zolpidem (AMBIEN) 10 mg tablet Take 1 Tablet by mouth nightly at bedtime as needed for sleep for insomnia 20 Tablet 1 09/23/19 025 Discontin ued(Reord er (E-Cancel Not Sent)) Active Problems Problem Noted Date Diagnosed Date Primary hypertension 10/10/2023 Right ankle sprain 05/23/2022 Cervical radiculopathy 04/05/2022 Depression 04/05/2022 Dyspepsia 04/05/2022 Facet arthropathy, lumbar 04/05/2022 History of total hysterectomy 04/05/2022 Overview (12/20/2022): - for menorrhagia, fibroids, and anemia. - for menorrhagia, fibroids, and anemia. - for menorrhagia, fibroids, and anemia. Leiomyoma 04/05/2022 Lumbar disc herniation 04/05/2022 Myofascial pain 04/05/2022 Restless legs syndrome 04/05/2022 Right lumbar radiculitis 04/05/2022 CTS (carpal tunnel syndrome) 04/05/2022 Chronic low back pain 04/05/2022 Lateral epicondylitis 04/05/2022 Seborrheic dermatitis 04/05/2022 Fibromyalgia 06/21/2021 Prediabetes 09/01/2020 Plaque psoriasis 09/01/2020 Polymyalgia arteritica ([facility]) 09/01/2020 Immunizations Name Administration Dates Next Due Flu, Preservative Free 08/02/2022,06/23/2020,08/2019 Hep B, Adult/Adol (ENERGIX/RECOMBIVAX) 10/26/2015,05/19/2015,04/20/2015 INFLUENZA, SEASONAL, INJECTABLE 06/19/20 18,07/20/2017,07/18/2016,2014,08/26/2014 Moderna COVID-19 Vaccine, re d cap blue label, 12+ Primary Series 03/23/2021 PPD 09/24/2019 TDAP 09/01/2020,06/19/2018,11/02/2007 ZOSTER VACCINE, RECOMBINANT (SHINGRIX) 08/04/2024 Family History Medical History Relation Name Comments Cancer Mother throat and lung cancer Relation Name Status Comments Father Mother Social History Tobacco Use Types Packs/Day Years Used Date Smoking Tobacco: Never Smokeless Tobacco: Never Tobacco Cessation:Counseling Given: Not Answered Alcohol Use Standard Drinks/Week Comments Yes 0 (1 standard drink = 0.6 oz pur e alcohol) Social Connections Answer Date Recorded Connectedness 1 10/24/2023 Financial Resource Strain Answer Date R ecorded Financial Resource Strain 1 2023 Stress Answer Date Recorded Stress 1 10/24/2023 Physical Activity Answer Date Recorded Physical Activity 0 06/17/2019 Food Insecurity Answer Date Recorded Food 1 10/24/2023 Transportation Needs Answer Date Record ed Transportation 1 10/24/2023 Housing Stability Answer Date Recorded Housing 1 10/24/2023 Safety and Environment Answer Date Artur rded Safety 1 10/24/2023 Utilities Answer Date Recorded Utilities 1 10/24/2023 Employment Answer Date Recorded Stress 0 12/05/2021 Comments No Sex and Gender Information Value Date Recorded Sex Assigned at Female 06/17/2019 10:32 AM PDT Legal Sex Female 12:52 PM PDT Gender Identity Female 06/17/2019 10:32 AM PDT Sexual Orientation Straight 06/17/2019 10 :32 AM PDT Last Filed Vital Signs Vital Sign Reading Time Taken Comments Blood Pressure 149/101 08/04/2024 3:09 PM EST Pulse 84 08/04/2024 3:09 PM EST Temperature 36.9 ??C (98.4 ??F) 08/04/2024 3:09 PM ES T Respiratory Rate 20 08/04/2024 3:09 PM EST Oxygen Saturation 97% 08/04/2024 3:09 PM EST Inhaled Oxygen Concentration - - Weight 80.3 kg (177 lb) 08/04/2024 3:09 PM EST Height 165.1 cm (5' 5 ) 08/04/2024 3:09 PM EST Body Mass Index 29.45 08/04/2024 3:09 PM EST Plan of Treatment Health Maintenance Due Date Last Done Comments HPV Screening 1974 Pap + HPV [address] Colonography 2019 Fecal DNA 2019 Flexible Sigmoidoscopy 2019 FIT/gFOBT 10/21/2023 10/21/2022 [id number] ( season) 2024 10/04/2021, 04/27/2021, 03/23/2021 Imm-Influenza (#1) 2024 08/02/2022, 1 , 08/28/2019, Additional history exists Diabetes Screening 07/12/2024 07/12/2023, 1 , 06/13/2021, Additional history exists Depression Monitoring 08/08/2024 05/08/2024 , 10/24/2023, 10/10/2022, Additional history exists Alcohol and Drug Screen 09/17/2024 10/24/19, 10/24/2023, 10/10/2022, Additional history exists Imm-Zoster, Recombinant (2 of 2) 09/29/2024 08/04/20 24 Breast Cancer Screening (Mammogram) 02/21/2025 02/22/2024, 11/19/2021, 06/08/2020, Additional history exists Annual Preventive Care Visit 05/08/2025, 09/01/2020, 08/28/2019 Tobacco Screening 08/04/2025 08/04/2024 Lipid Screening 07/12/2026 07/12/2023, 07/03/2023, 02/24/2021, Additional history exists Imm-DTaP/Tdap/Td (4 - Td or Tdap) 09/01/2030 09/01/2020, 06/19/2018, 11/02/2007 Colonoscopy 11/05/2034 11/05/2024 Colorectal Cancer Screening 11/05/2034 Imm-Hepatitis B Discontinued 10/26/2015, 10/2014, 04/20/2015 Hepatitis C Screening Completed 12/20/2022, 021 HIV Screening Completed 07/12/2023, 01/2023, 06/17/2019 Cervical Ablation/Cold-Knife Conization Discontinued Cervical Cancer Screening Discontinued Cervical Cryotherapy Discontinued Colposcopy Discontinued Endometrial Biopsy Discontinued Excision/Leep Discontinued HPV Genotyping Discontinued Pap Smear Discontinued Vaginal Pap Discontinued Vulvoscopy Discontinued Procedures Procedure Name Priority Date/Time Associated Diagnosis Comments REFERRAL FOR COLONOSCOPY Routine 11/05/2024 3:00 AM EST Encounter for colorectal cancer screening IMAGING SCANNED DOCUMENT 11/04/2024 3:00 AM EST REFERRAL TO VASCULAR SURGERY Routine 11/04/2024 3:00 AM EST Symptomatic varicose veins, right REFERRAL SCANNED DOCUMENT 09/16/2024 3:00 AM EST REFERRAL SCANNED DOCUMENT 09/04/2024 3:00 AM EST HEALTH HISTORY SCANNED DOCUMENT 09/03/2024 3:00 AM EST HISTORIC MAMMOGRAM 02/22/2024 3: 00 AM EDT HIV 1/2 AG & AB W/RFLX (4TH GEN) Routine 07/12/2023 1:25 PM EDT COMPREHENSIVE METABOLIC PANEL Routine 07/12/2023 1:25 PM EDT LIPID PANEL Routine 07/12/2023 1:25 PM EDT Hot flash, menopausal HEPATITIS C AB W/RFLX HCV RNA, QT, RT PCR Routine 12/20/2022 3:50 PM EDT Exposure to sexually transmitted disease (STD) FECAL GLOBIN BY IMMUNOCHEMISTRY (FIT) Routine 10/21/2022 8:54 AM EST from Last 3 Months or Most Recently Relevant to Health Maintenance Results * REFERRAL FOR COLONOSCOPY (11/05/2024 3:00 AM EST) 11/05/2024 3:00 AM EST Barry CONTRERAS REFERRAL Final Result * IMAGING SCANNED DOCUMENT (11/04/2024 3:00 AM EST) 11/04/2024 3:00 AM EST Result [facility] Barry Mota PA SCAN IMAGING Final Result * REFERRAL TO VASCULAR SURGERY (11/04/2024 3:00 AM EST) 11/04/2024 3:00 AM EST Barry Sosavais PA REFERRAL Final Result * REFERRAL SCANNED DOCUMENT (09/16/2024 3:00 AM EST) Only the most recent of2 resultswithin the time period is included. 09/16/2024 3:00 AM EST Barry Purvisis PA SCAN REFERRAL Final Result * HEALTH HISTORY SCANNED DOCUMENT (09/03/2024 3:00 AM EST) 09/03/2024 3:00 AM EST [facility] Provider Default SCAN OTHER ORDERS Final Re sult * HISTORIC MAMMOGRAM (02/22/2024 3:00 AM EDT) 02/22/2024 3:00 AM EDT Barry Mota PA IMG MAMMO Edited Result - Final * HIV 1/2 AG & AB W/RFLX (4TH GEN) (07/12/2023 1:25 PM EDT) HIV AG/AB, 4TH GEN NON-REAC TIVE NON-REAC TIVE [facility] Comment: HIV-1 antigen and HIV-1/HIV-2 antibodies were not detected. There is no laboratory evidence of HIV infection. PLEASE NOTE: This information has been disclosed to you from records whose confidentiality may be protected by state law. ??If your state requires such protection, then the state law prohibits you from making any further disclosure of the information without the specific written consent of the person to whom it pertains, or as otherwise permitted by law. A general authorization for the release of medical or other information is NOT sufficient for this purpose. ?? For additional information please refer to http://[employer]/faq/CTX953 (This link is being provided for informational/ educational purposes only.) The performance of this assay has not been clinically validated in patients less than 2 years old. 07/12/2023 1:25 PM EDT 07/12/2023 1:25 PM EDT [facility] - BLOOD DRAW Final Result [facility] [address] [address], [facility] [address] [address] * (ABNORMAL) LIPID PANEL (07/12/2023 1:25 PM EDT) CHOLESTEROL, TOTAL 253(H) <200 mg/dL [facility] HDL CHOLESTEROL 48(L) > OR = 50 mg/dL [facility] TRIGLYCERIDES 180(H) <150 mg/dL [facility] LDL-CHOLESTEROL 172(H) 99 mg/dL (calc) [facility] Comment: Reference range: <100 Desirable range <100 mg/dL for primary prevention; ?? <70 mg/dL for patients with CHD or diabetic patients with > or = 2 CHD risk factors. LDL-C is now calculated using the Niko-Nelson calculation, which is a validated novel method providing better accuracy than the Friedewald equation in the estimation of LDL-C. Niko SS et al. BLANQUITA. 2013;310(19): 0211-1929 (http://education.[employer]/faq/UPS735) CHOL/HDLC RATIO 5.3(H) <5.0 (calc) [facility] NON-HDL CHOLESTEROL 205(H) <130 mg/dL (calc) [facility] Comment: For patients with diabetes plus 1 major ASCVD risk factor, treating to a non-HDL-C goal of <100 mg/dL (LDL-C of <70 mg/dL) is considered a therapeutic option. Blood Blood / Unknown 07/12/2023 1 :25 PM EDT 07/12/2023 1:25 PM EDT [facility] - BLOOD DRAW Final Result [facility] [address] [address], [facility] [address] [place] [address] * (ABNORMAL) COMPREHENSIVE METABOLIC PANEL (07/12/2023 1:25 PM EDT) GLUCOSE 142(H) 65 - 99 mg/dL [facility] Comment: ?Fasting reference interval For someone without known diabetes, a glucose value >125 mg/dL indicates that they may have diabetes and this should be confirmed with a follow-up test. UREA NITROGEN (BUN) 17 7 - 25 mg/dL [facility] CREATININE (blood) 0.92 0.50 - 0.99 mg/dL [facility] EGFR 76 > OR = 60 mL/min/1. 73m2 [facility] BUN/CREATININE RATIO SEE NOTE: [facility] Comment: ?? Not Reported: BUN and Creatinine are within ?? reference range. ? SODIUM 137 135 - 146 mmol/L [facility] POTASSIUM 4.2 3.5 - 5.3 mmol/L [facility] CHLORIDE 98 98 - 110 mmol/L [facility] CARBON DIOXIDE 28 20 - 32 mmol/L [facility] CALCIUM 9.7 8.6 - 10.2 mg/dL [facility] PROTEIN, TOTAL 7.3 6.1 - 8.1 g/dL [facility] ALBUMIN 4.5 3.6 - 5.1 g/dL [facility] GLOBULIN 2.8 1.9 - 3.7 g/dL (calc) [facility] ALBUMIN/GLOBULI N RATIO 1.6 1.0 - 2.5 (calc) [facility] BILIRUBIN, TOTAL 0.5 0.2 - 1.2 mg/dL [facility] ALKALINE PHOSPHATASE 54 31 - 125 U/L [facility] AST 18 10 - 35 U/L [facility] ALT 16 6 - 29 U/L [facility] 07/12/2023 1:25 PM EDT 07/12/2023 1:25 PM EDT [facility] - BLOOD DRAW Edited Result - Final Performing Organization Address City/[facility] Co de Phone Number [facility] [address] [address], [facility] [address] [address] * HEPATITIS C AB W/RFLX HCV RNA, QT, RT PCR (12/20/2022 3:50 PM EDT) HEPATITIS C ANTIBODY NON-REACT CHALINO NON-REACT CHALINO [facility] SIGNAL TO CUT-OFF 0.08 <1.00 [facility] Comment: HCV antibody was non-reactive. There is no laboratory evidence of HCV infection. In most cases, no further action is required. However, if recent HCV exposure is suspected, a test for HCV RNA (test code 80867) is suggested. For additional information please refer to http://education.[employer]/faq/ZRD09w5 (This link is being provided for informational/ educational purposes only.) Blood Blood / Unknown 12/20/2022 3 :50 PM EDT 12/20/2022 3:50 PM EDT us [facility] - BLOOD DRAW Edited Result - Final Performing Organization Address [facility]/ZIP Co de Phone Number [facility] [address] [address], [facility] [address] [address] * FECAL GLOBIN BY IMMUNOCHEMISTRY (FIT) (10/21/2022 8:54 AM EST) FECAL GLOBIN BY IMMUNOCHEMISTRY See Note [facility] Comment: ??FECAL GLOBIN BY IMMUNOCHEMISTRY ?Micro Number: ?[id number] ??Test Status: ? Final ??Specimen Source: ?? Insure (tm) fobt test card ??Specimen Quality: ??Adequate ??Fecal Globin: ?Not Detected ??Comment: ? Test results may be invalid as no date of ? collection was provided. Specimens are stable ? for 14 days. NO COLLECTION DATE RECEIVED. WE HAVE USED THE DATE THE SPECIMEN WAS RECEIVED BY THIS LABORATORY THE COLLECTION DATE. IF THIS IS INCORRECT, PLEASE CONTACT CLIENT SERVICES. PHONE NUMBER: 10/20/2022 11: 06 PM EST [facility] - NO BLOOD DRAW Final Resu lt [facility] [address] [facility] [address] [place] [address], [facility] [address] [facility] [address] [place] [address] from Last 3 Months or Most Recently Relevant to Health Maintenance Insurance [employer] Care Teams City Dispatcher Relationship Specialty Start Date End Date Barry Mota PA [address] [place] [address] PCP - General Internal Medicine 06/23/20
--- OUTSIDE RECORDS SUMMARY | 2024-11-27 12:04 | XMS_ITS | Encounter Summary ---
Author Organization [facility] Address [id number] [place] [id number] Care Team Providers Care Nuclear Equipment Test Engineer Name Role Phone Barry Mota Primary Care Provider [phone] Reason for Referral * Hospital - Outpatient (Routine) - Closed Specialty Diagnoses / Procedures Referred By Contac t Referred To Contact Gastroenterology Diagnoses Colon cancer screening Procedures COLONOSCOPY Anesthesia - MAC; [facility] ENDOSCOPY Bucky Schmitt DO [address] [address] Phone: tel: fax: [facility] Endoscopy [address] [place] [address] Phone: tel: Referral ID Status Reason Start Date Expiration Date Visits Re quested Visits Authorized [id number] Closed 09/04/2024 09/04/2025 1 1 Reason for Visit * Hospital - Outpatient (Routine) - Closed Specialty Diagnoses / Procedures Referred By Dheeraj veras Referred To Contact Gastroenterology Diagnoses Colon cancer screening Procedures COLONOSCOPY Anesthesia - MAC; [facility] ENDOSCOPY Bucky Schmitt DO [address] [address] Phone: tel: fax: [facility] Endoscopy [address] [place] [address] Phone: tel: Referral ID Status Reason Start Date Expiration Date Visits Re quested Visits Authorized [id number] Closed 09/04/2024 09/04/2025 1 1 Encounter Details Date Type Department Care Team (Latest Contact Info) Description 11/05/2024 1:16 PM EST - 11/05/2024 11:59 PM EST Hospital Encounter [facility] Endoscopy [address] [place] [address] Shahid Schmittlas, 175 [facility] [address] [place] [address] Dilma Stanley MD [address] [place] [address] Colon cancer screening Discharge Disposition: Home or Self Care Social History Tobacco Use Types Packs/Day Years Used Date Smoking Tobacco: Never Smokeless Tobacco: Never Tobacco Cessation:Counseling Given: Not Answered Alcohol Use Standard Drinks/Week Comments Not Currently 0 (1 standard drink = 0.6 oz pur e alcohol) Interpersonal Safety Answer Date Record ed Physical Abuse 11/05/2024 Verbal Abuse 11/05/2024 Comments No Sex and Gender Information Value Date Recorded Sex Assigned at Female 11/01/2024 1:13 PM EST Legal Sex Female 11:38 PM EST Gender Identity Female 11/01/2024 1:13 PM EST Sexual Orientation Choose not to disclose 2024 1:07 PM EST documented as of this encounter Last Filed Vital Signs Vital Sign Reading Time Taken Comments Blood Pressure 120/86 11/05/2024 3:18 PM EST Pulse 70 11/05/2024 3:18 PM EST Temperature 36 ??C (96.8 ??F) 11/05/2024 2:09 PM EST Respiratory Rate 14 11/05/2024 3:18 PM EST Oxygen Saturation 100% 11/05/2024 3:18 PM EST Inhaled Oxygen Concentration - - Weight 81.6 kg (180 lb) 11/05/2024 2:09 PM EST Height 162.6 cm (5' 4 ) 11/05/2024 2:09 PM EST Body Mass Index 30.9 11/05/2024 2:09 PM EST documented in this encounter Discharge Instructions * Attachments The following attachments cannot be sent through Care Everywhere. * Colon Polyps (Urdu) documented in this encounter Medications at Time of Discharge acetic acid (VOSOL) 2 % otic solution Administer 4 drops into each ear 3 (three) times a day. benzonatate (TESSALON) 100 mg capsule Take 1 capsule (100 mg total) by mouth 3 (three) times a day if needed for cough. bisacodyL (DULCOLAX) 5 mg EC tablet Take 2 tablets by mouth right before beginning bowel prep. See instructions provided by the office 2 tablet 10/22/2024 bisacodyL (DULCOLAX) 5 mg EC tablet Take 2 tablets 1 hour before the start of your bowel prep. 2 tablet 11/04/2024 calcipotriene-be tamethasone (TACLONEX) ointment Apply 1 Application topically 1 (one) time each day. clonazePAM (KlonoPIN) 0.5 mg tablet Take 1 tablet (0.5 mg total) by mouth 2 (two) times a day. cloNIDine (CATAPRES) 0.1 mg tablet Take 1 tablet (0.1 mg total) by mouth 2 (two) times a day. famotidine (PEPCID) 20 mg tablet Take 1 tablet (20 mg total) by mouth 2 (two) times a day. fluocinonide (LIDEX) 0.05 % topical solution Apply 1 Application topically 1 (one) time each day. gabapentin (NEURONTIN) 400 mg capsule Take 1 capsule (400 mg total) by mouth 3 (three) times a day. hydroCHLOROthiaz juanjo (HYDRODIURIL) 25 mg tablet Take 1 tablet (25 mg total) by mouth 1 (one) time each day. ibuprofen (ADVIL,MOTRIN) 800 mg tablet Take 1 tablet (800 mg total) by mouth 3 (three) times a day if needed. losartan (COZAAR) 100 mg tablet Take 1 tablet (100 mg total) by mouth 1 (one) time each day. meloxicam (MOBIC) 15 mg tablet Take 1 tablet (15 mg total) by mouth 1 (one) time each day. mometasone (NASONEX) 50 mcg/actuation nasal spray Administer 2 sprays into each nostril 1 (one) time each day. naloxone (NARCAN) 4 mg/0.1 mL nasal spray Administer 1 each (4 mg total) into affected nostril(s). penicillin v potassium (VEETID) 500 mg tablet Take 1 tablet (500 mg total) by mouth 3 (three) times a day. polyethylene glycol (Golytely) 236-22.74-6.74 -5.86 gram solution Take 4L by mouth once for one dose. May substitue any PEG. Starting at 6PM the night before your procedure drink 1 8oz glasses at your own pace until you complete half of the gallon. Finish 2nd half of the gallon 5 hours before your procedure. 4000 mL 11/04/2024 prazosin (MINIPRESS) 2 mg capsule Take 1 capsule (2 mg total) by mouth 1 (one) time each day. RANITIDINE HCL ORAL Take 150 mg by mouth 2 (two) times a day. rOPINIRole (REQUIP) 1 mg tablet Take 1 tablet (1 mg total) by mouth at bedtime. traMADoL (ULTRAM) 50 mg tablet Take 1 tablet (50 mg total) by mouth 4 (four) times a day if needed. valACYclovir (VALTREX) 500 mg tablet Take 1 tablet (500 mg total) by mouth 1 (one) time each day. venlafaxine XR (EFFEXOR-XR) 150 mg 24 hr capsule Take 1 capsule (150 mg total) by mouth 1 (one) time each day. zolpidem (AMBIEN) 10 mg tablet Take 1 tablet (10 mg total) by mouth at bedtime as needed. documented as of this encounter Discharge Disposition Disposition Code Departure Means Destination Home or Self Care documented in this encounter Progress Notes * Bette Schwartz RN - 11/05/2024 2:58 PM EST REPORT GIVEN TO Kennedi SHAH RN * Bette Schwartz RN - 11/05/2024 2:53 PM EST DX: POLYP * Bucky Schmitt DO - 11/05/2024 2:30 PM EST Please let the patient know that the colon polyp removed was benign, but precancerous. Given the type and size of the polyp, and based on current guidelines, I recommend that a surveillance colonoscopy is performed in [address] a reminder on the system for the patient to be contacted to have a surveillance colonoscopy in 7 years. High-fiber diet and avoidance of processed foods recommended. The patient may follow-up with a primary care provider as instructed. Thank you. * Amairani Butterfield MA - 11/05/2024 2:30 PM EST Letter mailed. Recall placed. * Jalyn Austin RN - 11/05/2024 2:02 PM EST Problem: Cognitive:Periop Procedure - Minor Goal: Knowledge of disease or condition will improve Outcome: Progressing Problem: Sensory:Periop Procedure - Minor Goal: Demonstrates/reports adequate pain control Outcome: Progressing PATIENT VERBALIZES UNDERSTANDING OF DISCHARGE INSTRUCTIONS documented in this encounter H&P Notes * Bucky Schmitt DO - 11/05/2024 2:30 PM EST Pre-Op Diagnosis: screening Proposed Procedure: colonoscopy Performing Surgeon/MD/Endoscopist: Bucky Schmitt DO Medical/History: No past medical history on file.No past surgical history on file. Medications/Allergies: Prior to Admission medications Medication Sig Start Date End Date Taking? Authorizing Provider acetic acid (VOSOL) 2 % otic solution Administer 4 drops into each ear 3 (three) times a day. Historical Provider, benzonatate (TESSALON) 100 mg capsule Take 1 capsule (100 mg total) by mouth 3 (three) times a day if needed for cough. Historical Provider, bisacodyL (DULCOLAX) 5 mg EC tablet Take 2 tablets by mouth right before beginning bowel prep. See instructions provided by the office 10/22/24 Mirian Epstein NP bisacodyL (DULCOLAX) 5 mg EC tablet Take 2 tablets 1 hour before the start of your bowel prep. 11/04/24 Carlos Culp MD calcipotriene-betamethasone (TACLONEX) ointment Apply 1 Application topically 1 (one) time each day. Historical Provider, clonazePAM (KlonoPIN) 0.5 mg tablet Take 1 tablet (0.5 mg total) by mouth 2 (two) times a day. Max Daily Amount: 1 mg Historical ProviderMD cloNIDine (CATAPRES) 0.1 mg tablet Take 1 tablet (0.1 mg total) by mouth 2 (two) times a day. Historical ProviderMD famotidine (PEPCID) 20 mg tablet Take 1 tablet (20 mg total) by mouth 2 (two) times a day. Historical ProviderMD fluocinonide (LIDEX) 0.05 % topical solution Apply 1 Application topically 1 (one) time each day. Historical ProviderMD gabapentin (NEURONTIN) 400 mg capsule Take 1 capsule (400 mg total) by mouth 3 (three) times a day.Historical ProviderMD hydroCHLOROthiazide (HYDRODIURIL) 25 mg tablet Take 1 tablet (25 mg total) by mouth 1 (one) time each day. Historical ProviderMD ibuprofen (ADVIL,MOTRIN) 800 mg tablet Take 1 tablet (800 mg total) by mouth 3 (three) times a day if needed. Historical ProviderMD losartan (COZAAR) 100 mg tablet Take 1 tablet (100 mg total) by mouth 1 (one) time each day. Historical ProviderMD meloxicam (MOBIC) 15 mg tablet Take 1 tablet (15 mg total) by mouth 1 (one) time each day. Historical ProviderMD mometasone (NASONEX) 50 mcg/actuation nasal spray Administer 2 sprays into each nostril 1 (one) time each day. Historical ProviderMD naloxone (NARCAN) 4 mg/0.1 mL nasal spray Administer 1 each (4 mg total) into affected nostril(s). Historical Provider, penicillin v potassium (VEETID) 500 mg tablet Take 1 tablet (500 mg total) by mouth 3 (three) timesa day. Historical Provider, polyethylene glycol (Golytely) 236-22.74-6.74 -5.86 gram solution Take 4L by mouth once for one dose. May substitue any PEG. Starting at 6PM the night before your procedure drink 1 8oz glasses at your own pace until you complete half of the gallon. Finish 2nd half of the gallon 5 hours before your procedure. 11/04/24 Carlos Culp MD prazosin (MINIPRESS) 2 mg capsule Take 1 capsule (2 mg total) by mouth 1 (one) time each day. Historical Provider, RANITIDINE HCL ORAL Take 150 mg by mouth 2 (two) times a day. Historical Provider, rOPINIRole (REQUIP) 1 mg tablet Take 1 tablet (1 mg total) by mouth at bedtime. Historical Provider, traMADoL (ULTRAM) 50 mg tablet Take 1 tablet (50 mg total) by mouth 4 (four) times a day if needed.Max Daily Amount: 200 mg Historical Provider, valACYclovir (VALTREX) 500 mg tablet Take 1 tablet (500 mg total) by mouth 1 (one) time each day. Historical Provider, venlafaxine XR (EFFEXOR-XR) 150 mg 24 hr capsule Take 1 capsule (150 mg total) by mouth 1 (one) time each day. Historical Provider, zolpidem (AMBIEN) 10 mg tablet Take 1 tablet (10 mg total) by mouth at bedtime as needed. Max DailyAmount: 10 mg Historical Provider, polyethylene glycol (Golytely) 236-22.74-6.74 -5.86 gram solution Take 4L by mouth once for one dose. May substitue any PEG. Starting at 6PM the night before your procedure drink 1 8oz glasses at your own pace until you complete half of the gallon. Finish 2nd half of the gallon 5 hours before your procedure. 10/22/24 11/04/24 Mirian Epstein NP Patient Age:49 y.o. Vitals: There were no vitals filed for this visit. Physical Exam: Mental Status: Clear HEENT: WNL Heart: WNL Lungs: WNL Abdomen: WNL Extremities: WNL Neuro: WNL Labs: Imaging: Diagnosis/Plan: colonoscopy documented in this encounter Procedure Notes * Luz Maria Shah RN - 11/05/2024 3:[address] shetty to discuss procedure results, all questions answered. Tolerated po fluids, ready for discharge. documented in this encounter Plan of Treatment Not on file documented as of this encounter Procedures Procedure Name Priority Date/Time Associated Diagnosis Comments COLONOSCOPY Routine 11/05/2024 2:57 PM EST Colon cancer screening TISSUE EXAM Routine 11/05/2024 2:52 PM EST Colon cancer screening documented in this encounter Results * COLONOSCOPY Anesthesia - MAC; [facility] ENDOSCOPY (11/05/2024 2:57 PM EST) Anatomical Region Laterality Modality Endoscopy 11/05/2024 2:40 PM EST Impressions 11/05/2024 2:57 PM EST - Hemorrhoids found on perianal exam. ? - One 6 mm polyp in the sigmoid colon, removed with a ? cold snare. Resected and retrieved. ? - The examination was otherwise normal on direct and ? retroflexion views. Recommendation: ?- - Discharge patient to home. ? - High fiber diet. ? - Continue present medications. ? - Await pathology results. ? - Repeat colonoscopy for surveillance based on ? pathology results. Narrative 11/05/2024 2:57 PM EST [facility] GI Patient Name: Stephanie Nielsen Procedure Date: 11/05/2024 2:40 PM Date of : 1975 Age: 49 Gender: Female Note Status: Finalized Attending MD: Bucky Schmitt DO, [id number] Procedure Date No Time: 11/05/2024 Procedure: ? Colonoscopy Indications: ? Screening for colorectal malignant neoplasm Providers: ? Bucky Schmitt DO Referring MD: ? Medicines: ? Monitored Anesthesia Care Complications: ? No immediate complications. Estimated blood loss: ? Minimal. Estimated Blood Loss: ? Estimated blood loss was minimal. Procedure: ? Pre-Anesthesia Assessment: ? - - Prior to the procedure, a History and Physical was ? performed, and patient medications and allergies were ? reviewed. The patient is competent. The risks and ? benefits of the procedure and the sedation options and ? risks were discussed with the patient. All questions ? were answered and informed consent was obtained. ? Patient identification and proposed procedure were ? verified by the physician, the nurse, the ? anesthesiologist, the import/export analyst and the paint technician ? in the pre-procedure area in the endoscopy suite. ? Mental Status Examination: alert and oriented. Airway ? Examination: normal oropharyngeal airway and neck ? mobility. Respiratory Examination: clear to ? auscultation. CV Examination: normal. Prophylactic ? Antibiotics: The patient does not require prophylactic ? antibiotics. Prior Anticoagulants: The patient has ? taken no anticoagulant or antiplatelet agents. ASA ? Grade Assessment: II - A patient with severe systemic ? disease. After reviewing the risks and benefits, the ? patient was deemed in satisfactory condition to ? undergo the procedure. The anesthesia plan was to use ? monitored anesthesia care (MAC). Immediately prior to ? administration of medications, the patient was ? re-assessed for adequacy to receive sedatives. The ? heart rate, respiratory rate, oxygen saturations, ? blood pressure, adequacy of pulmonary ventilation, and ? response to care were monitored throughout the ? procedure. The physical status of the patient was ? re-assessed after the procedure. ? After I obtained informed consent, the scope was ? passed under direct vision. Throughout the procedure, ? the patient's blood pressure, pulse, and oxygen ? saturations were monitored continuously. The Olympus ? Pediatric Colonoscope was introduced through the anus ? and advanced to the cecum, identified by appendiceal ? orifice and ileocecal valve. The colonoscopy was ? performed without difficulty. The patient tolerated ? the procedure well. The quality of the bowel ? preparation was good. Findings: ?Hemorrhoids were found on perianal exam. ? A 6 mm polyp was found in the sigmoid colon. The polyp ? was sessile. The polyp was removed with a cold snare. ? Resection and retrieval were complete. Verification of ? patient identification for the specimen was done. ? Estimated blood loss was minimal. ? A few small-mouthed diverticula were found in the ? sigmoid colon and descending colon. There was no ? evidence of diverticular bleeding. ? The exam was otherwise without abnormality on direct ? and retroflexion views. Procedure Code(s): ? --- Professional --- ? [address]01, Colonoscopy, flexible; with removal of ? tumor(s), polyp(s), or other lesion(s) by snare ? technique Diagnosis Code(s): ? --- Professional --- ? Z12.11, Encounter for screening for malignant neoplasm ? of colon ? K64.9, Unspecified hemorrhoids ? D12.5, Benign neoplasm of sigmoid colon CPT copyright 202 [employer]. All rights reserved. The codes documented in this report are preliminary and upon supervisor kennel review may be revised to meet current compliance requirements. BUCKY Schmitt DO 11/05/2024 2:56:51 PM This report has been signed electronically.Bucky Schmitt DO Number of Addenda: 0 Note Initiated On: 11/05/2024 2:40 PM Scope Withdrawal Time: 0 hours 7 minutes 20 seconds Scope In: 2:44:36 PM Scope Out: 2:55:11 PM ? Endoscopy Department at [facility] - [address] [place] [address], ? [place] [address] Procedure Note Bucky Schmitt DO - 11/05/2024 [facility] GI Patient Name: Stephanie Nielsen Procedure Date: 11/05/2024 2:40 PM Date of : 1975 Age: 49 Gender: Female Note Status: Finalized Attending MD: Bucky Schmitt DO, [id number] Procedure Date No Time: 11/05/2024 Procedure: Colonoscopy Indications: Screening for colorectal malignant neoplasm Providers: Bucky Schmitt DO Referring MD: Medicines: Monitored Anesthesia Care Complications: No immediate complications. Estimated blood loss: Minimal. Estimated Blood Loss: Estimated blood loss was minimal. Procedure: Pre-Anesthesia Assessment: - - Prior to the procedure, a History and Physicalwas performed, and patient medications and allergieswere reviewed. The patient is competent. The risks and benefits of the procedure and the sedation optionsand risks were discussed with the patient. Allquestions were answered and informed consent was obtained. Patient identification and proposed procedure were verified by the physician, the nurse, the anesthesiologist, the import/export analyst and thetechnician in the pre-procedure area in the endoscopy suite. Mental Status Examination: alert and oriented.Airway Examination: normal oropharyngeal airway and neck mobility. Respiratory Examination: clear to auscultation. CV Examination: normal. Prophylactic Antibiotics: The patient does not requireprophylactic antibiotics. Prior Anticoagulants: The patient has taken no anticoagulant or antiplatelet agents. ASA Grade Assessment: II - A patient with severesystemic disease. After reviewing the risks and benefits,the patient was deemed in satisfactory condition to undergo the procedure. The anesthesia plan was touse monitored anesthesia care (MAC). Immediately priorto administration of medications, the patient was re-assessed for adequacy to receive sedatives. The heart rate, respiratory rate, oxygen saturations, blood pressure, adequacy of pulmonary ventilation,and response to care were monitored throughout the procedure. The physical status of the patient was re-assessed after the procedure. After I obtained informed consent, the scope was passed under direct vision. Throughout theprocedure, the patient's blood pressure, pulse, and oxygen saturations were monitored continuously. TheOlympus Pediatric Colonoscope was introduced through theanus and advanced to the cecum, identified byappendiceal orifice and ileocecal valve. The colonoscopy was performed without difficulty. The patient tolerated the procedure well. The quality of the bowel preparation was good. Findings: Hemorrhoids were found on perianal exam. A 6 mm polyp was found in the sigmoid colon. Thepolyp was sessile. The polyp was removed with a coldsnare. Resection and retrieval were complete. Verificationof patient identification for the specimen was done. Estimated blood loss was minimal. A few small-mouthed diverticula were found in the sigmoid colon and descending colon. There was no evidence of diverticular bleeding. The exam was otherwise without abnormality ondirect and retroflexion views. Procedure Code(s): --- Professional --- 05836, Colonoscopy, flexible; with removal of tumor(s), polyp(s), or other lesion(s) by snare technique Diagnosis Code(s): --- Professional --- Z12.11, Encounter for screening for malignantneoplasm of colon K64.9, Unspecified hemorrhoids D12.5, Benign neoplasm of sigmoid colon CPT copyright 2020 [employer]. All rights reserved. The codes documented in this report are preliminary and upon supervisor kennel reviewmay be revised to meet current compliance requirements. BUCKY Schmitt DO 11/05/2024 2:56:51 PM This report has been signed electronically.Bucky Schmitt DO Number of Addenda: 0 Note Initiated On: 11/05/2024 2:40 PM Scope Withdrawal Time: 0 hours 7 minutes 20 seconds Scope In: 2:44:36 PM Scope Out: 2:55:11 PM Endoscopy Department at [facility] - [address] [place] [id number] IMPRESSION: - Hemorrhoids found on perianal exam. - One 6 mm polyp in the sigmoid colon, removed witha cold snare. Resected and retrieved. - The examination was otherwise normal on directand retroflexion views. Recommendation: - - Discharge patient to home. - High fiber diet. - Continue present medications. - Await pathology results. - Repeat colonoscopy for surveillance based on pathology results. us Bucky Schmitt DO GI~PROCEDURE ORDERABLES Final Re sult * Tissue exam (11/05/2024 2:52 PM EST) Final Diagnosis A. Large Intestine, Sigmoid Colon, polyp: - Tubular adenoma. 11/06/2024 11:20 AM [facility] Gross Description A. Large Intestine, Sigmoid Colon, polyp: Labeled Sig colon polyp . Received in formalin is a 0.3 cm irregular gamez mucosal tissue fragments which is wrapped in paper and submitted total one cassette, one piece, multiple levels on one slide. CARLA 11/06/2024 11:20 AM [facility] Disclaimer Unless otherwise specified, all tissue is 10% NB formalin fixed and paraffin embedded. 11/06/2024 11:20 AM [facility] Tissue Sigmoid colon structure / Unknown 11/05/2024 2:52 PM EST 11/05/2024 3:50 PM EST Bucky Schmitt DO LAB PATHOLOGY ORDERABLES Final R esult [facility] [address] [place] [address], documented in this encounter Visit Diagnoses Diagnosis Colon cancer screening Special screening for malignant neoplasms, colon documented in this encounter Orders Discharge Count Last Ordered Date First Orde red Date DISCHARGE PATIENT 1 11/05/2024 documented in this encounter Care Teams Nuclear Equipment Test Engineer Relationship Specialty Start Date End Date Barry Mota PA [address] [place] [address] PCP - General 05/13/24 documented as of this encounter
--- OUTSIDE RECORDS SUMMARY | 2024-11-27 12:04 | XMS_ITS | Clinical Summary ---
Author Organization 175 [facility] Address [address] [place] [address] Phone Care Team Providers Care Bolt Man Name Role Phone Barry Mota Primary Care Provider [phone] Allergies Active Allergy Reactions Criticality Noted Date Comments Amlodipine 05/13/2024 Lisinopril 05/13/2024 Nitrofurantoin Macrocrystal 05/13/20 24 Medications meloxicam (MOBIC) 15 mg tablet Take 1 tablet (15 mg total) by mouth 1 (one) time each day. Active RANITIDINE HCL ORAL Take 150 mg by mouth 2 (two) times a day. Active acetic acid (VOSOL) 2 % otic solution Administer 4 drops into each ear 3 (three) times a day. Active benzonatate (TESSALON) 100 mg capsule Take 1 capsule (100 mg total) by mouth 3 (three) times a day if needed for cough. Active calcipotriene- betamethasone (TACLONEX) ointment Apply 1 Application topically 1 (one) time each day. Active clonazePAM (KlonoPIN) 0.5 mg tablet Take 1 tablet (0.5 mg total) by mouth 2 (two) times a day. Active cloNIDine (CATAPRES) 0.1 mg tablet Take 1 tablet (0.1 mg total) by mouth 2 (two) times a day. Active famotidine (PEPCID) 20 mg tablet Take 1 tablet (20 mg total) by mouth 2 (two) times a day. Active fluocinonide (LIDEX) 0.05 % topical solution Apply 1 Application topically 1 (one) time each day. Active gabapentin (NEURONTIN) 400 mg capsule Take 1 capsule (400 mg total) by mouth 3 (three) times a day. Active hydroCHLOROthi azide (HYDRODIURIL) 25 mg tablet Take 1 tablet (25 mg total) by mouth 1 (one) time each day. Active ibuprofen (ADVIL,MOTRIN) 800 mg tablet Take 1 tablet (800 mg total) by mouth 3 (three) times a day if needed. Active losartan (COZAAR) 100 mg tablet Take 1 tablet (100 mg total) by mouth 1 (one) time each day. Active mometasone (NASONEX) 50 mcg/actuation nasal spray Administer 2 sprays into each nostril 1 (one) time each day. Active naloxone (NARCAN) 4 mg/0.1 mL nasal spray Administer 1 each (4 mg total) into affected nostril(s). Active penicillin v potassium (VEETID) 500 mg tablet Take 1 tablet (500 mg total) by mouth 3 (three) times a day. Active rOPINIRole (REQUIP) 1 mg tablet Take 1 tablet (1 mg total) by mouth at bedtime. Active prazosin (MINIPRESS) 2 mg capsule Take 1 capsule (2 mg total) by mouth 1 (one) time each day. Active traMADoL (ULTRAM) 50 mg tablet Take 1 tablet (50 mg total) by mouth 4 (four) times a day if needed. Active valACYclovir (VALTREX) 500 mg tablet Take 1 tablet (500 mg total) by mouth 1 (one) time each day. Active venlafaxine XR (EFFEXOR-XR) 150 mg 24 hr capsule Take 1 capsule (150 mg total) by mouth 1 (one) time each day. Active zolpidem (AMBIEN) 10 mg tablet Take 1 tablet (10 mg total) by mouth at bedtime as needed. Active bisacodyL (DULCOLAX) 5 mg EC tablet Take 2 tablets by mouth right before beginning bowel prep. See instructions provided by the office 2 tablet 5 Active polyethylene glycol (Golytely) 236-22.74-6.74 -5.86 gram solution Take 4L by mouth once for one dose. May substitue any PEG. Starting at 6PM the night before your procedure drink 1 8oz glasses at your own pace until you complete half of the gallon. Finish 2nd half of the gallon 5 hours before your procedure. 4000 mL 5 Active bisacodyL (DULCOLAX) 5 mg EC tablet Take 2 tablets 1 hour before the start of your bowel prep. 2 tablet 5 Active polyethylene glycol (Golytely) 236-22.74-6.74 -5.86 gram solution Take 4L by mouth once for one dose. May substitue any PEG. Starting at 6PM the night before your procedure drink 1 8oz glasses at your own pace until you complete half of the gallon. Finish 2nd half of the gallon 5 hours before your procedure. 4000 mL 5 025 Discontin ued(Reord er) Active Problems Problem Noted Date Diagnosed Date HTN (hypertension) 11/05/2024 Gastroesophageal reflux disease without esophagi tis 11/05/2024 Arthritis 11/05/2024 Encounters Date Type Department Care Team Description 11/05/2024 2:41 PM EST Anesthesia Event [facility] Endoscopy [address] [place] [id number] Dilma Stanley MD Pierce, Trudy A, BOX ESTIMATOR 11/05/2024 1:16 PM EST - 11/05/2024 11:59 PM EST Hospital Encounter [facility] Endoscopy [address] [place] [phone] Bucky Schmitt DO Kriz, Petra, MD Colon cancer screening Discharge Disposition: Home or Self Care 09/03/2024 Telephone Gastroenterology - [place] [facility] [address] [facility] [address] [place] [address] Carlos Culp MD Special Procedure from Last 3 Months Surgical History Surgery Date Site/Laterality Comments HYSTERECTOMY BACK SURGERY FACET ARTHROPATHY, LUMBAR Medical History Medical History Date Comments Fibromyalgia Hypertension Pneumonia GERD (gastroesophageal reflux disease) Depression Leiomyoma Lumbar disc herniation Carpal tunnel syndrome Polymyalgia arteritica (CMS/HCC) Psoriasis Restless leg syndrome Lateral epicondylitis Social History Tobacco Use Types Packs/Day Years [...] not to disclose 2024 1:07 PM EST Obstetrics History Last Filed Vital Signs Vital Sign Reading [...] Mass Index 30.9 11/05/2024 2:09 PM EST Plan of Treatment Health Maintenance Due Date Last Done Comments Breast Cancer Screening 1975 Cervical Cancer Screening: Pap Smear 1995 HIV Screening 08/20/2022 Social Influencers of Health Screening 08/20/2022 Pneumococcal Vaccine: 50+ Years (1 of 1 - PCV) 2024 COVID-19 Vaccine (4 - season) 2024 10/04/2021, 04/27/2021, 03/23/2021 Influenza Vaccine (#1) 2024 , 06/23/2020, 08/28/2019, Additional history exists Zoster Vaccines (2 of 2) 09/29/2024 08/04/2024 Hypertension/CHF/CAD Annual BMP Blood Test 11/05/2024 07/12/2023 Depression Screening 05/08/2025 05/08/2024 Cholesterol Screening (Lipid Panel) 07/12/2028 07/12/2023, 07/12/2023, 04/12/2023, Additional history exists DTaP,Tdap,and Td Vaccines (4 - Td or Tdap) 09/01/2030 09/01/2020, 06/19/2018, 11/02/2007 Colorectal Cancer Screening: Colonoscopy 11/05/2031 11/05/2024 Hepatitis B Vaccines Completed 10/26/2015, 05/19/2015, 04/20/2015 Hepatitis C Screening Completed 12/20/2022 HIB Vaccines Aged Out No longer eligi ble based on patient's age to complete this topic HPV Vaccines Aged Out No longer eligi ble based on patient's age to complete this topic Hepatitis A Vaccines Aged Out No long er eligible based on patient's age to complete this topic IPV Vaccines Aged Out No longer eligi ble based on patient's age to complete this topic MMR Vaccines Aged Out No longer eligi ble based on patient's age to complete this topic Meningococcal ACWY Vaccine Aged Out N o longer eligible based on patient's age to complete this topic Meningococcal B Vacine Aged Out No lo nger eligible based on patient's age to complete this topic Pneumococcal Vaccine: Pediatrics (0 to 5 Years) and At-Risk Patients (6 to 64 Years) Aged Out No longer eligible based on patient's age to complete this topic RSV Immunization Patients Under 20 months Aged Out No longer eligible based on patient's age to complete this topic Varicella Vaccines Aged Out No longer eligible based on patient's age to complete this topic Procedures Procedure Name Priority Date/Time Associated Diagnosis Comments COLONOSCOPY Routine 11/05/2024 2:57 PM EST Colon cancer screening TISSUE EXAM Routine 11/05/2024 2:52 PM EST Colon cancer screening from Last 3 Months Results * COLONOSCOPY Anesthesia - MAC; [facility] ENDOSCOPY (11/05/2024 2:57 PM EST) Anatomical [...] pathology results. Narrative 11/05/2024 2:57 PM EST [facility] GI Patient Name: Stephanie Nielsen Procedure Date: 11/05/2024 2:40 PM Date of : 1975 Age: 49 Gender: Female Note Status: Finalized Attending MD: Bucky Schmitt DO, [id number] Procedure Date No Time: 11/05/2024 Procedure: ? [...] physician, the nurse, the ? anesthesiologist, the soccer ball assembler and the tool repair technician ? in the pre-procedure area in [...] Procedure Code(s): ? --- Professional --- ? 88269, Colonoscopy, flexible; with removal of ? tumor(s), polyp(s), or other lesion(s) by snare ? technique Diagnosis Code(s): ? --- Professional --- ? Z12.11, Encounter for screening for malignant neoplasm ? of colon ? K64.9, Unspecified hemorrhoids ? D12.5, Benign neoplasm of sigmoid colon CPT copyright 2020 [employer]. All rights reserved. The codes documented in this report are preliminary and upon fur operator review may be revised to meet current compliance requirements. BUCKY Schmitt DO 11/05/2024 2:56:51 PM This report has been signed electronically.Bucky Schmitt DO Number of Addenda: 0 Note Initiated On: 11/05/2024 2:40 PM Scope Withdrawal Time: 0 hours 7 minutes 20 seconds Scope In: 2:44:36 PM Scope Out: 2:55:11 PM ? Endoscopy Department at [facility] - [address] [place] [address], ? [place] [address] Procedure Note Bucky Schmitt DO - 11/05/2024 [facility] GI Patient Name: Stephanie Nielsen Procedure Date: 11/05/2024 2:40 PM Date of : 1975 Age: 49 Gender: Female Note Status: Finalized Attending MD: Bucky Schmitt DO, [id number] Procedure Date No Time: 11/05/2024 Procedure: Colonoscopy [...] the physician, the nurse, the anesthesiologist, the soccer ball assembler and thetechnician in the pre-procedure area in [...] retroflexion views. Procedure Code(s): --- Professional --- 90447, Colonoscopy, flexible; with removal of tumor(s), polyp(s), or other lesion(s) by snare technique Diagnosis Code(s): --- Professional --- Z12.11, Encounter for screening for malignantneoplasm of colon K64.9, Unspecified hemorrhoids D12.5, Benign neoplasm of sigmoid colon CPT copyright 2020 [employer]. All rights reserved. The codes documented in this report are preliminary and upon fur operator reviewmay be revised to meet current compliance requirements. BUCKY Schmitt DO 11/05/2024 2:56:51 PM This report has been signed electronically.Bucky Schmitt DO Number of Addenda: 0 Note Initiated On: 11/05/2024 2:40 PM Scope Withdrawal Time: 0 hours 7 minutes 20 seconds Scope In: 2:44:36 PM Scope Out: 2:55:11 PM Endoscopy Department at [facility] - [address] [place] [id number] IMPRESSION: - Hemorrhoids found on perianal exam. - One 6 mm polyp in the sigmoid colon, removed witha cold snare. Resected and retrieved. - The examination was otherwise normal on directand retroflexion views. Recommendation: - - Discharge patient to home. - High fiber diet. - Continue present medications. - Await pathology results. - Repeat colonoscopy for surveillance based on pathology results. Bucky Schmitt DO GI~PROCEDURE ORDERABLES Final Re sult * Tissue exam (11/05/2024 2:52 PM EST) Final Diagnosis A. Large Intestine, Sigmoid Colon, polyp: - Tubular adenoma. 11/06/2024 11:[address] [facility] Gross Description A. Large Intestine, Sigmoid Colon, polyp: Labeled Sig colon polyp . Received in formalin is a 0.3 cm irregular gamez mucosal tissue fragments which is wrapped in paper and submitted total one cassette, one piece, multiple levels on one slide. CARLA 11/06/2024 11:[address] [facility] Disclaimer Unless otherwise specified, all tissue is 10% NB formalin fixed and paraffin embedded. 11/06/2024 11:[address] [facility] Tissue Sigmoid colon structure / Unknown 11/05/2024 2:52 PM EST 11/05/2024 3:50 PM EST us Bucky Schmitt DO LAB PATHOLOGY ORDERABLES Final R esult [facility] ([facility]) [facility] [address] [place] [address], from Last 3 Months Insurance MEDICAID - [place] Care Teams Bolt Man Relationship Specialty Start Date End Date Barry Mota PA [address] [place] [address] PCP - General 05/13/24
--- OUTSIDE RECORDS SUMMARY | 2024-11-27 12:04 | XMS_ITS | Encounter Summary ---
Author Organization [facility] Address [address] [place] [address] Care Team Providers Care Master Welder Name Role Phone Barry Mota Primary Care Provider [phone] Encounter Details Date Type Department Care Team (Late st Contact Info) Description 11/05/2024 2:41 PM EST Anesthesia Event [facility] [address] [place] [address] Dilma Stanley MD [address] [place] [id number] Sharita Maher CRNA [address] [place] [id number] Anesthesia Record Procedure Summary Procedure Name Responsible Anesthesiologist Anesthesia Start Time Anesthesia Stop Time COLONOSCOPY Dilma Stanley MD 11/05/24 1441 11/05/24 150 0 Events Date Time Event Comment 11/05/2024 1424 1440 In Room 1441 An Start 1441 An Start Data The patient wa s reevaluated immediately before moderate or deep sedation use and before anesthesia induction. 1441 Anesthesia Ready 1457 Out of Room 1457 an stop data 1500 Handoff to RN I completed my handoff to the receiving nurse during which we: 1. Identified the patient 2. Identified the responsible provider 3. Reviewed the pertinent medical history 4. Discussed the surgical course 5. Reviewed intra-op anesthesia management and issues during anesthesia 6. Set expectations for post-procedure period 7. Allowed opportunity for questions and acknowledgement of understanding. 1500 An Stop Meds Name Total propofol (DIPRIVAN) injection 10 mg/mL 2 00 mg lidocaine PF (XYLOCAINE-MPF) local injec tion 2% 100 mg lactated Ringer's infusion 350 mL * Agents No agents on file. * Blood No blood administrations on file. Lines, Drains, and Airways Type Details Placement Removal Peripheral IV Placement Date: 11/05/24; Placement Time: 1405; Catheter Size: 20 G; Orientation: Right; Location: Antecubital; Site Prep: Chlorhexidine; Insertion Attempts: 1; Patient Tolerance: Tolerated well; Removal Date: 11/05/24; Removal Time: 1511 11/05/24 1405 by Jalyn Austin RN 11/05/24 1511 by Luz Maria Boyer RN documented in this encounter Social History Tobacco Use Types Packs/Day Years Used Date Smoking Tobacco: Never Smokeless Tobacco: Never Alcohol Use Standard Drinks/Week Comments Not Currently [...] PM EST documented as of this encounter Progress Notes * Sharita Maher CRNA - 11/05/2024 3:00 PM EST Patient: Stephanie Nielsen Procedure Summary Date: 11/05/24 Room / Location: [facility] Anesthesia Start: 1441 Anesthesia Stop: 1500 Procedure: COLONOSCOPY Diagnosis: Colon cancer screening (Screening for colorectal malignant neoplasm) Scheduled Providers: Samir Schmitt DO; Samira Conley CRNA; Dilma Stanley MD Responsible Provider: Dilma Stanley MD Anesthesia Type: MAC ASA Status: 2 Anesthesia Plan: MAC Last Vitals: Vitals Visit Vitals BP (!) 146/92 Pulse 83 Temp 36 ??C (96.8 ??F) Resp 15 Ht 1.626 m (64 ) Wt 81.6 kg (180 lb) SpO2 99% BMI 30.90 kg/m?? OB Status Hysterectomy Smoking Status Never BSA 1.87 m?? BP Temp Pulse Resp SpO2 No data recorded Anesthesia Post Evaluation Patient location during evaluation: PACU (phase 2) Patient participation: complete - patient participated Level of consciousness: awake Pain score: 0 Pain management: adequate Anesthetic complications: no Cardiovascular status: stable Respiratory status: spontaneous ventilation Hydration status: acceptable Comments: Report to RN VSS No c/o. Nausea: No Vomiting: No There were no known notable events for this encounter. * Dilma Stanley MD - 11/05/2024 1:55 PM EST 49 y.o. female scheduled for 49 y.o. female scheduled for [COLONOSCOPY [GI6]] Ht Readings from Last 1 Encounters: No data found for Ht Wt Readings from Last 1 Encounters: No data found for Wt There is no height or weight on file to calculate BMI. History reviewed. No pertinent past medical history. History reviewed. No pertinent surgical history. Denies anesthesia complications Allergies Allergen Reactions Amlodipine Lisinopril Nitrofurantoin Macrocrystal Current Outpatient Medications on File Prior to Encounter Medication Sig Dispense Refill acetic acid (VOSOL) 2 % otic solution [...] instructions provided by the office 2 tablet 0 bisacodyL (DULCOLAX) 5 mg EC tablet Take 2 tablets 1 hour before the start of your bowel prep. 2 tablet 0 calcipotriene-betamethasone (TACLONEX) ointment Apply 1 Application topically 1 (one) time each day. clonazePAM (KlonoPIN) 0.5 mg tablet Take 1 tablet (0.5 mg total) by mouth 2 (two) times a day. Max Daily Amount: 1 mg cloNIDine (CATAPRES) 0.1 mg tablet Take 1 [...] by mouth 3 (three) times a day. hydroCHLOROthiazide (HYDRODIURIL) 25 mg tablet Take 1 [...] total) by mouth 3 (three) timesa day. polyethylene glycol (Golytely) 236-22.74-6.74 -5.86 gram solution Take 4L by mouth once for one dose. May substitue any PEG. Starting at 6PM the night before your procedure drink 1 8oz glasses at your own pace until you complete half of the gallon. Finish 2nd half of the gallon 5 hours before your procedure. 4000 mL 0 prazosin (MINIPRESS) 2 mg capsule Take 1 [...] day if needed.Max Daily Amount: 200 mg valACYclovir (VALTREX) 500 mg tablet Take 1 tablet (500 mg total) by mouth 1 (one) time each day. venlafaxine XR (EFFEXOR-XR) 150 mg 24 hr capsule Take 1 capsule (150 mg total) by mouth 1 (one) time each day. zolpidem (AMBIEN) 10 mg tablet Take 1 tablet (10 mg total) by mouth at bedtime as needed. Max DailyAmount: 10 mg [DISCONTINUED] polyethylene glycol (Golytely) 236-22.74-6.74 -5.86 gram solution Take 4L by mouth once for one dose. May substitue any PEG. Starting at 6PM the night before your procedure drink 1 8ozglasses at your own pace until you complete half of the gallon. Finish 2nd half of the gallon 5 hours before your procedure. 4000 mL 0 No current facility-administered medications on file prior to encounter. Current In-hospital Medications Is the patient a current smoker (e.g. cigarette, cigar, pip, e-cigarette, or mariajuana)? Yes [] No[] Patient previously instructed to abstain from smoking on the day of procedure? Yes [] No[] Patient smoked on the day of procedure? Yes [] No[] ASPIRE smoking VBR: [] Not interested in quitting [] Interested in quitting- referred to treatment [] Interested in quitting - treatment provided There were no vitals taken for this visit. Available cardiac studies reviewed: No results found. EKG No results found for this or any previous visit (from the past 4464 hours). ECHO No results found for this or any previous visit. CATH No results found for this or any previous visit. LABS: No results found for: WBC , HGB , HCT , MCV , PLT No results found for: GLUCOSE , CALCIUM , NA , K , CO2 , CL , BUN , CREATININE No results found for: INR , PROTIME No results found for: PTT Denies cardiac, pulm, neuro, hepatic or renal s/sx. Patient meets ASA guidelines for NPO status. > 4 mets without anginal symptoms. Relevant labs, vitals, imaging, cardiac and pulmonary studies as well as HPI, Meds, Allergies, ROS,PMH, PSH, SH, and FH reviewed. [COLONOSCOPY [GI6]] Ht Readings from Last 1 Encounters: No data found for Ht Wt Readings from Last 1 Encounters: No data found for Wt There is no height or weight on file to calculate BMI. History reviewed. No pertinent past medical history. History reviewed. No pertinent surgical history. Denies anesthesia complications Allergies Allergen Reactions Amlodipine Lisinopril Nitrofurantoin Macrocrystal Current Outpatient Medications on File Prior to Encounter Medication Sig Dispense Refill acetic acid (VOSOL) 2 % otic solution [...] instructions provided by the office 2 tablet 0 bisacodyL (DULCOLAX) 5 mg EC tablet Take 2 tablets 1 hour before the start of your bowel prep. 2 tablet 0 calcipotriene-betamethasone (TACLONEX) ointment Apply 1 Application topically 1 (one) time each day. clonazePAM (KlonoPIN) 0.5 mg tablet Take 1 tablet (0.5 mg total) by mouth 2 (two) times a day. Max Daily Amount: 1 mg cloNIDine (CATAPRES) 0.1 mg tablet Take 1 [...] by mouth 3 (three) times a day. hydroCHLOROthiazide (HYDRODIURIL) 25 mg tablet Take 1 [...] total) by mouth 3 (three) timesa day. polyethylene glycol (Golytely) 236-22.74-6.74 -5.86 gram solution Take 4L by mouth once for one dose. May substitue any PEG. Starting at 6PM the night before your procedure drink 1 8oz glasses at your own pace until you complete half of the gallon. Finish 2nd half of the gallon 5 hours before your procedure. 4000 mL 0 prazosin (MINIPRESS) 2 mg capsule Take 1 [...] day if needed.Max Daily Amount: 200 mg valACYclovir (VALTREX) 500 mg tablet Take 1 tablet (500 mg total) by mouth 1 (one) time each day. venlafaxine XR (EFFEXOR-XR) 150 mg 24 hr capsule Take 1 capsule (150 mg total) by mouth 1 (one) time each day. zolpidem (AMBIEN) 10 mg tablet Take 1 tablet (10 mg total) by mouth at bedtime as needed. Max DailyAmount: 10 mg [DISCONTINUED] polyethylene glycol (Golytely) 236-22.74-6.74 -5.86 gram solution Take 4L by mouth once for one dose. May substitue any PEG. Starting at 6PM the night before your procedure drink 1 8ozglasses at your own pace until you complete half of the gallon. Finish 2nd half of the gallon 5 hours before your procedure. 4000 mL 0 No current facility-administered medications on file prior to encounter. Current In-hospital Medications Is the patient a current smoker (e.g. cigarette, cigar, pip, e-cigarette, or mariajuana)? Yes [] No[] Patient previously instructed to abstain from smoking on the day of procedure? Yes [] No[] Patient smoked on the day of procedure? Yes [] No[] ASPIRE smoking VBR: [] Not interested in quitting [] Interested in quitting- referred to treatment [] Interested in quitting - treatment provided There were no vitals taken for this visit. Available cardiac studies reviewed: No results found. EKG No results found for this or any previous visit (from the past 4464 hours). ECHO No results found for this or any previous visit. CATH No results found for this or any previous visit. LABS: No results found for: WBC , HGB , HCT , MCV , PLT No results found for: GLUCOSE , CALCIUM , NA , K , CO2 , CL , BUN , CREATININE No results found for: INR , PROTIME No results found for: PTT Denies cardiac, pulm, neuro, hepatic or renal s/sx. Patient meets ASA guidelines for NPO status. > 4 mets without anginal symptoms. Relevant labs, vitals, imaging, cardiac and pulmonary studies as well as HPI, Meds, Allergies, ROS,PMH, PSH, SH, and FH reviewed. Relevant Problems Cardio (+) HTN (hypertension) GI (+) Gastroesophageal reflux disease without esophagitis Other fibromyalgia (+) Arthritis Clinical information reviewed: Allergies Problems Med Hx Surg Hx Fam Hx Anesthesia Plan ASA 2 Anesthesia Plan: MAC Anesthesia Considerations MAC Plan Factors Patient is not a current smoker Smoking cessation education has not been provided Induction method: intravenous Anesthetic plan and risks discussed with patient. Anesthesia Plan discussed with AIR CONDITIONING ENGINEER. Anesthesia Evaluation Airway Mallampati: II Thyromental distance: >3 FB Neck ROM: fullnot intubatedno noted risk Dental Pulmonary breath sounds clear to auscultation Cardiovascular Rhythm: regular Rate: normal Neuro/Psych Mental Status: alert and oriented GI/Hepatic/Renal Endo/Other Abdominal Abdomen: soft. Bowel sounds: normal. PONV RISK SCORE: 1 There were no vitals filed for this visit. SpO2 Readings from Last 1 Encounters: No data found for SpO2 No results found for: WBC , RBC , HGB , HCT , PLT , MCV Allergies Allergen Reactions Amlodipine Lisinopril Nitrofurantoin Macrocrystal STOP BANG: No data recorded NPO Status: No data recorded documented in this encounter Plan of Treatment Not on file documented as of this encounter Visit Diagnoses Not on filedocumented in this encounter Administered Medications Inactive Administered Medications - up to 3 most recent administrations Medication Order MAR Action Action Date Dose Rate Site lactated Ringer's infusion intravenous, Continuous PRN, Starting on Sun11/05/24 at 1437, Anesthesia Intraprocedure New Bag 11/05/2024 2:37 PM EST lidocaine (PF) (XYLOCAINE-MPF) 2 % injection injection, As needed, Starting on Sun11/05/24 at 1442, Anesthesia Intraprocedure Given 11/05/2024 2:42 PM EST 100 mg propofoL (DIPRIVAN) injection intravenous, As needed, Starting on Sun11/05/24 at 1443, Anesthesia Intraprocedure Given 11/05/2024 2:46 PM EST 100 mg Given 11/05/2024 2:43 PM EST 100 mg documented in this encounter Care Teams Master Welder Relationship Specialty Start Date End Date Barry Mota PA [address] [place] [address] PCP - General 05/13/24 documented as of this encounter
== END 2024-11-27 10:39 | disposition home or self-care (01) ==
LOC: HO.HOS 09:52
PROVIDERS: PCP Physician Assistant; Visit Provider Physical Medicine & Rehabilitation
DX: M54.12 Radiculopathy, cervical region (principal); M79.18 Myalgia, other site
CPT/HCPCS: 99213

== ENCOUNTER → 2024-11-27 09:51 | Outpatient (BNVA) | payer MEDICAID, SELFPAY | PROVIDERS: PCP Physician Assistant; Visit Provider Physical Medicine & Rehabilitation | DX: M54.12 Radiculopathy, cervical region (principal); M79.18 Myalgia, other site | CPT/HCPCS: 99212 ==